=== PATIENT | female | born 1955 | race Caucasian/White ===

== ENCOUNTER 2018-06-18 18:00 | Inpatient (IN) | payer OTHER ==
--- NOTE | 2018-06-18 18:04 | PDOC ---
History of Present Illness - General Chief Complaint: Nausea/Vomiting Stated Complaint: NAUSEA WEAKNESS Time Seen by Provider: 06/18/18 18:03 History Source: Patient, Family Exam Limitations: Language Barrier (Mostly Croatian speaking; family provided translation) - History of Present Illness Initial Comments: 63 y/o female presenting to [facility] ER via ambulance from home complaining of nausea, vomiting, cough, fever for the past four days. Became dizzy and lightheaded today prompting the 911 call. Has not been tolerating PO. Endorses SOB at rest. Denies syncope, headache, sore throat, abdominal pain, diarrhea, or symptoms. Child in household has been diagnosed with pneumonia by PCP. PCP: Bhavna Collins Medical Hx: - Diabetes - HTN Past History - Past Medical History Allergies/Adverse Reactions: Allergies Allergy/AdvReac Type Severity Reaction Status Date / Time No Known Allergies Allergy Verified 06/18/18 18:11 Home Medications: Ambulatory Orders Aspirin [ASA -] 81 mg PO DAILY 06/18/18 Lisinopril [Zestril] 20 mg PO DAILY 06/18/18 Metformin HCl [Metformin HCl ER] 1,000 mg PO BID 06/18/18 Review of Systems - Review of Systems Able to Perform ROS?: Yes Comments:: In addition to that documented in the HPI above, the additional ROS was obtained : Constitutional: Endorses fevers or chills Eyes: Denies vision changes ENMT: Denies sore throat CV: Denies chest pain Resp: Endorses SOB GI: Endorses vomiting. Denies diarrhea ED Treatment Course - LABORATORY CBC & Chemistry Diagram: 06/18/18 19:00 06/18/18 19:00 Medical Decision Making - Medical Decision Making *Reviewed vital signs, nursing notes, and prior visit documentation (if available). 64 y/o female complaining of cough, fever, nausea, and vomiting for the past four days. Close contact diagnosed with pneumonia. Febrile. Vitals remarkable for tachycardia and tachypnea without hypotension. Does not use oxygen therapy, now requiring 2LPM to maintain SPO2 >94%. Suspect pneumonia versus influenza. Low suspicion for ACS, CHF, pneumonitis, acute bronchitis. As pt currently meeting 2/4 SIRS (fever, tachycardia) and requiring O2, will obtain adult sepsis order set. Ordered acetaminophen and IVFB. CBC revealed leukocytosis. VBG revealed mild alkalosis, though this is a questionable sample as pO2 is extremely high for a venous sample. Will consider repeating as clinical status indicates. CXR shows possible RUQ lobar pneumonia. Poor diagnostic quality based on pt positioning. Will start antibiotics for community acquired pneumonia. Pt continuing to require supplemental oxygen. 20:57 Telephone consult with resident Dr. Ochoa. Agrees to admit pt to med/surg on inpatient status for Dr. Veliz. *DC/Admit/Observation/Transfer Diagnosis at time of Disposition: Tachycardia determined by examination of pulse, Fever determined by examination , Low oxygen saturation Community acquired pneumonia Qualifiers: Laterality: right Lung location: upper lobe of lung Qualified Code(s): J18.1 - Lobar pneumonia, unspecified organism - Discharge Dispostion Condition at time of disposition: Stable Decision to Admit order: Yes - Referrals Referrals: Bhavna Collins [Primary Care Provider] - - Patient Instructions - Post Discharge Activity
[2018-06-18] MEDS ORDERED: ACETAMINOPHEN 1000 MG/100 ML VIAL (NON FORMULARY) IVPB ONE (18:22)
[2018-06-18] MEDS ORDERED: SODIUM CHLORIDE 0.9% 500 ML INFUS.BAG IV ONE (18:25)
[2018-06-18] MEDS ORDERED: ACETAMINOPHEN INJECTION 100 ML IVPB ONE (18:41)
[2018-06-18 19:21] LABS: BASO % 0.3 % (0-2.0); HEMATOCRIT 38.6 % (32.4-45.2); HEMOGLOBIN 13.1 GM/dL (10.7-15.3); LYMPH % 9.6 % (8-40); MCH 26.9 pg (25.7-33.7); MCHC 33.9 g/dl (32.0-36.0); MEAN CELL VOLUME 79.2 fl (80-96); MEAN PLT VOLUME 9.4 fl (7.5-11.1); MONO % 6.1 % (3.8-10.2); PLATELET COUNT 167 K/MM3 (134-434); RBC 4.87 M/mm3 (3.60-5.2); RDW 14.3 % (11.6-15.6); VENOUS PC02 36.7 mmHg (38-52); VENOUS PH 7.44 (7.32-7.42); VENOUS PO2 80.4 mmHg (28-48); WHITE BLOOD COUNT 17.7 K/mm3 (4.0-10.0)
[2018-06-18] MEDS ORDERED: ONDANSETRON 4 MG/2 ML VIAL IVPUSH ONE (19:36)
[2018-06-18] MEDS ORDERED: ONDANSETRON 4 MG/2 ML VIAL ONE (19:39)
[2018-06-18 19:47] LABS: ALBUMIN 3.2 g/dl (3.4-5.0); ALK PHOS 112 U/L (45-117); ANION GAP 12 MMOL/L (8-16); BILIRUBIN,TOTAL 2.5 mg/dL (0.2-1); BLOOD UREA NITROGEN 17 mg/dL (7-18); CALCIUM 8.1 mg/dL (8.5-10.1); CHLORIDE 98 mmol/L (98-107); CO2 23 mmol/L (21-32); GLUCOSE,RANDOM 287 mg/dL (74-106); POTASSIUM 3.7 mmol/L (3.5-5.1); SGOT/AST 44 U/L (15-37); SGPT/ALT 63 U/L (13-61); SODIUM 134 mmol/L (136-145); TOT PROT 6.9 g/dl (6.4-8.2)
[2018-06-18] MEDS ORDERED: AZITHROMYCIN IVPB 500 MG in DEXTROSE 5%-WATER - 250 ML IVPB ONE (20:20)
[2018-06-18] MEDS ORDERED: CEFTRIAXONE 1 MG in DEXTROSE 5%-WATER - 50 ML IVPB ONE (20:20)
--- NOTE | 2018-06-18 20:51 | PDOC ---
Attending Attestation - Resident Resident Name: Tho Wilburn - ED Attending Attestation I have performed the following: I have examined & evaluated the patient, The case was reviewed & discussed with the resident, I agree w/resident's findings & plan, Exceptions are as noted - HPI HPI: 06/18/18 20:48 63 yo f with h/o HTN DM here with four days of cough, n/v threw up several times today. states decreased po intake last few days. did have sick contact of grandson who had pneumonia recently. no travel. no rash. no abd pain. no urinary symptoms. cough productive or yellow phelgm. no mod factor.s no cp no sob. no h/o lung disea.s no h/o smoking. - Physicial Exam PE: 06/18/18 20:49 awake alert lungs oropharynx dry mucous membranes. decreased bs at bases. reg tachycardia. no mrg abd soft obese nt. nondistended. ext wwp no edema. no calf tenderness. skin warm and dry no rash. alert oriented x 3. speech clear. - Medical Decision Making 06/18/18 20:50 differential : sepsis, flu, uti pelo influenza, pna, plan cxr labs ekg. sepsis workup. tylenol antiemetics. cxr with questionable infiltrate right . given abx , vs. improved. Heart Score/ECG Review #1 General ECG Interpretation: Sinus Rhythm, Normal Intervals, No acute ischemic changes Compared to previous ECG there are: Other 06/18/18 20:51 sinus tachycardia 108
[2018-06-18] MEDS ORDERED: CEFTRIAXONE 1 GM/50 ML BAG ONE (21:18)
[2018-06-18] MEDS ORDERED: AZITHROMYCIN IVPB 500 MG/250 ML BAG IVPB ONE (21:18)
[2018-06-18] MEDS ORDERED: ACETAMINOPHEN 325 MG TABLET (FP) PO PRN (21:45)
[2018-06-18] MEDS ORDERED: LACTATED RINGERS SOLUTION 1,000 ML IV STA (21:45)
--- NOTE | 2018-06-18 22:03 | HP ---
CHIEF COMPLAINT: cough, fever, dizziness HISTORY OF PRESENT ILLNESS: 63 year old female with a history of DM and hypertension presented to the ED complaining of 2 day hx of fever, cough, dizziness. Reports that it started as a cough productive of large amount of yellow sputum that progressed to a high fever which did not break with antipyretics. Patient states that she has been abnormally dizzy over the past 2 days, moreso when she is sitting up than when she is laying down. Endorsed mild nausea without vomiting. Reports that she was taking care of her son, who was diagnosed with pneumonia just 1 week ago. Denies any chest pain, shortness of breath, vomiting, diarrhea. States that after she received fluids in the ED, her dizziness had improved and she felt much better. ER course was notable for: (1) Temp 103, HR 96 (2) CXR without any abnormality (3) EKG NSR, Qtc reported as 519 Recent Travel: denies PAST MEDICAL HISTORY: DM, HTN PAST SURGICAL HISTORY: kidney stone surgery, tonsillectomy, tubal ligation Social History: Smoking: never Alcohol: social Drugs: never Family History: mother with cerebral aneurysm Allergies No Known Allergies Allergy (Verified 06/18/18 18:11) HOME MEDICATIONS: Home Medications Medication Instructions Recorded Aspirin [ASA -] 81 mg PO DAILY 06/18/18 Lisinopril [Zestril] 20 mg PO DAILY 06/18/18 Metformin HCl [Metformin HCl ER] 1,000 mg PO BID 06/18/18 REVIEW OF SYSTEMS CONSTITUTIONAL: fever Absent: fever, chills, diaphoresis, generalized weakness, malaise, loss of appetite, weight change HEENT: Absent: rhinorrhea, nasal congestion, throat pain, throat swelling, difficulty swallowing, mouth swelling, ear pain, eye pain, visual changes CARDIOVASCULAR: Absent: chest pain, syncope, palpitations, irregular heart rate, lightheadedness , peripheral edema RESPIRATORY: cough Absent: shortness of breath, dyspnea with exertion, orthopnea, wheezing, stridor, hemoptysis GASTROINTESTINAL: Absent: abdominal pain, abdominal distension, nausea, vomiting, diarrhea, constipation, melena, hematochezia GENITOURINARY: Absent: dysuria, frequency, urgency, hesitancy, hematuria, flank pain, genital pain MUSCULOSKELETAL: Absent: myalgia, arthralgia, joint swelling, back pain, neck pain SKIN: Absent: rash, itching, pallor HEMATOLOGIC/IMMUNOLOGIC: Absent: easy bleeding, easy bruising, lymphadenopathy, frequent infections ENDOCRINE: Absent: unexplained weight gain, unexplained weight loss, heat intolerance, cold intolerance NEUROLOGIC: Absent: headache, focal weakness or paresthesias, dizziness, unsteady gait, seizure, mental status changes, bladder or bowel incontinence PSYCHIATRIC: Absent: anxiety, depression, suicidal or homicidal ideation, hallucinations. PHYSICAL EXAMINATION Vital Signs - 24 hr 06/18/18 06/18/18 06/18/18 18:09 18:34 19:52 Temperature 103.0 F H Pulse Rate 112 H Pulse Rate [ 96 H Left] Respiratory 18 18 Rate Blood Pressure 176/90 H Blood Pressure 133/84 [Right Arm] O2 Sat by Pulse 93 L 97 98 Oximetry (%) GENERAL: A&Ox3, no acute distress EYES: PERRLA, EOMI ENT: Dry mucus membranes NECK: No JVD LUNGS: CTA, mild rales heard in upper lung field on the left HEART: RRR, no murmurs ABDOMEN: Obese, Soft, nontender, BS present MUSCULOSKELETAL: No CVA Tenderness EXTREMITIES: 2+ pulses, no edema. NEUROLOGICAL: Cranial nerves II-XII intact. No focal Deficits. Laboratory Results - last 24 hr 06/18/18 06/18/18 06/18/18 19:00 19:00 19:00 WBC 17.7 H RBC 4.87 Hgb 13.1 Hct 38.6 MCV 79.2 L MCH 26.9 MCHC 33.9 RDW 14.3 Plt Count 167 MPV 9.4 Absolute Neuts (auto) 14.9 H Neutrophils % 84.0 H Lymphocytes % 9.6 Monocytes % 6.1 Eosinophils % 0.0 Basophils % 0.3 Nucleated RBC % 0 VBG pH 7.44 H POC VBG pCO2 36.7 L POC VBG pO2 80.4 H Mixed VBG HCO3 24.6 Sodium 134 L Potassium 3.7 Chloride 98 Carbon Dioxide 23 Anion Gap 12 BUN 17 Creatinine 1.0 Creat Clearance w eGFR 56.18 Random Glucose 287 H Lactic Acid Calcium 8.1 L Total Bilirubin 2.5 H AST 44 H ALT 63 H Alkaline Phosphatase 112 Troponin I Total Protein 6.9 Albumin 3.2 L Influenza A (Rapid) Influenza B (Rapid) 06/18/18 06/18/18 06/18/18 19:00 19:00 19:10 WBC RBC Hgb Hct MCV MCH MCHC RDW Plt Count MPV Absolute Neuts (auto) Neutrophils % Lymphocytes % Monocytes % Eosinophils % Basophils % Nucleated RBC % VBG pH POC VBG pCO2 POC VBG pO2 Mixed VBG HCO3 Sodium Potassium Chloride Carbon Dioxide Anion Gap BUN Creatinine Creat Clearance w eGFR Random Glucose Lactic Acid 1.3 Calcium Total Bilirubin AST ALT Alkaline Phosphatase Troponin I < 0.02 Total Protein Albumin Influenza A (Rapid) Negative Influenza B (Rapid) Negative ASSESSMENT/PLAN: 63 year old female with a history of DM and hypertension presented to the ED complaining of 2 day hx of fever, cough, dizziness admitted for the treatment of sepsis 2/2 PNA #Sepsis 2/2 PNA: CXR clear, SIRs criteria and clinically will treat for PNA -urine legionella ordered -CT chest ordered -1 L lactated ringers -ceftriaxone 2gm IV -azithromycin 500 IV -f/u blood/urine cultures/UA -sputum culture #DM: glucose elevated -check A1C -BGMs -ISS #Transaminitis: mild -trend LFTs in AM #Hypertension: -resume home BP meds #FEN -1L lactated ringers ordered -recheck lytes in AM -diabetic diet #Prophylaxis -lovenox #Disposition -admit med surg Visit type - Emergency Visit Emergency Visit: No - New Patient This patient is new to me today: No - Critical Care Critical Care patient: No
[2018-06-18] MEDS ORDERED: INSULIN (NOVOLOG) ASPART 100 UNITS/ML 10ML VIAL ONE (22:37)
[2018-06-18] MEDS: INSULIN SLIDING SCALE (NOVOLOG) 1 VIAL SQ SCH (22:39)
--- NOTE | 2018-06-18 23:29 | PN ---
Teaching Attending Note Name of Resident: Ramon Ochoa ATTENDING PHYSICIAN STATEMENT I saw and evaluated the patient. I reviewed the resident's note and discussed the case with the resident. I agree with the resident's findings and plan as documented. SUBJECTIVE: Seen and examined; please refer to resident note for further historical details. This is a 63 y/o female with a PMH significant for DM, HTN. She is only documented as taking lisinopril, metformin, and asa at home. She has had several days of malaise and productive cough with thick yellowish sputum that did evolve into hemoptysis while on the floor tonight. Her family member that she lives with has been sick with pneumonia and she is concerned she has it. Nothing makes her sx better or worse, no recent doctor visits or abx. Has had poor PO intake as nausea and some vomitting associated with these sx. She was seen by the resident earlier in the night and was moved to the floor shortly after where I saw here. On the floor she was found to develop SOB and substernal chest tightness with hemoptysis; never had these issues before. No prior CV workup on file here. Given tachycardia and hemoptysis cannot exclude PE as Well's Score 2.5; given relatively unremarkable CXR will also help shed light on any occult infiltrates. 10 sys ROS done and negative aside from HPI PMH and PSH reviewed FH asked and noncontributory Social hx denies EtOH or tobacco abuse OBJECTIVE: VS now stable satting 96% on RA, labs and imaging reviewed NAD, resting in bed RRR s1/2 no mgr NC AT EOMI PERRLA NT ND +BS Trachea midline no JVD Lungs appear to be clear with sym exp No peripheral edema with +2 pedal pulses CXR done on admission is unremarkable; recheck CXR this AM US preliminary report shows that she has diffuse fatty infiltration of her liver with a CBD 0.8cm Final report is pending Labs show a WBC of 17 with neutrophilia; Na 134; Tbili is 2.5 with AST/ALT 44/63 , glucose 280s, negative influenza, cultures pending. Rest of CBC, BMP unremarkable. ESR/CRP pending, Lipase pending. UA with ketonuria +1 and proteinuria +2 ASSESSMENT AND PLAN: Mrs. Hernandez is a 63 y/o female presenting with fever, tachycardia, hypoxia, and leukocytosis with a cough; she was found to have an elevated bilirubuin and mildly elevated AST/ALT. After hydration and abx her HR lowered and O2 saturation improved, but she again developed SOB with some tachy and now hemoptysis on the floor. Checking CTA as now Well's Score 2.5 and cannot r/o using PERC rule. 1) Likely Sepsis with ?pulm source -Given the benign physical exam in abdomen, neuro not suspecting those sources ( especially with the negative US). her history suggests pulmonary source but her CXR is non-revealing. Given hemoptysis, etc. obtaining CTA to r/o PE or other issues so will be able to see an occult infiltrate. Covering empirically with ceftriaxone and azithro. Culturing sputum and blood. Checking pneumococcal and legionella Ag. 2) Hemoptysis -Checking CTA, quanterferon. Monitor. No stridor, etc. 3) Chest Tightness -Risk factors but atypical presentation ? relation to coughing. Ruling out PE. Checking STAT EKG and troponin. Checking echo. If concern exists consider inpt. vs. outpt. stress test vs. CV assessment. DDx includes PE vs. ACS vs. musculoskeletal/other 4) Elevated LFTs -Fatty infiltration seen diffusely on the US; she is s/p cholecystectomy. Checking hepatitis pannel. May be component of BURRIS. No abdominal signs; will trend and if worsening consider further workup vs. GI evaluation. 5) Fatty Liver -As per above 6) HTN -Hold PO meds; resume when ascertained stable VS and SOB resolving appropriately. 7) NIDDM -Hold PO meds and place on SSI 8) Obesity -House Player when appropriate prior to DC 9) Dizziness -Never syncopized, was when she was going to stand from sitting. Moving her to telemetry and will watch for arrhythmia. +Ketones, orthostatic sx (VS not done prior to hydration so would be innacurate), and h/o poor PO intake indicate likely volume related process. Reassess today and if not improved consider further workup. 10) Very Mild Hyponatremia -With h/o poor PO, etc. likely due to poor solute intake. Giving isotonic fluids then rechecking BMP. DVT px: Lovenox Full Code
[2018-06-19 01:44] LABS: URINE APPEARANCE CLEAR; URINE BILIRUBIN NEGATIVE (<2.0 mg/dL); URINE COLOR DKYELLOW; URINE GLUCOSE (UA) 3+ (NEGATIVE); URINE KETONE 1+ (NEGATIVE); URINE LEUK ESTERASE NEGATIVE (NEGATIVE); URINE NITRITE NEGATIVE (NEGATIVE); URINE PROTEIN 2+ (NEGATIVE)
[2018-06-19 01:50] LABS: EPI CELLS RARE /HPF (FEW); GRANULAR CASTS 10 /lpf; URINE BACTERIA RARE /hpf (NONE SEEN); URINE HYALINE CAST 41 /lpf; URINE MUCUS RARE
[2018-06-19 05:55] VITALS: BMI 33.4
[2018-06-19] MEDS: INSULIN SLIDING SCALE (NOVOLOG) 1 VIAL SQ SCH ×4 (06:35→21:39)
[2018-06-19 08:45] LABS: BILIRUBIN,DIRECT 0.7 mg/dL (0.0-0.2); LIPASE 117 U/L (73-393)
[2018-06-19 08:55] LABS: CHOLESTEROL 156 mg/dL (50-200); TRIGLYCERIDES 149 mg/dL (0-150)
[2018-06-19 09:28] LABS: HEMATOCRIT 37.3 % (32.4-45.2); HEMOGLOBIN 12.1 GM/dL (10.7-15.3); MCHC 32.4 g/dl (32.0-36.0); MEAN CELL VOLUME 80.1 fl (80-96); MEAN PLT VOLUME 9.8 fl (7.5-11.1); PLATELET COUNT 155 K/MM3 (134-434); RBC 4.66 M/mm3 (3.60-5.2); RDW 14.4 % (11.6-15.6); WHITE BLOOD COUNT 16.7 K/mm3 (4.0-10.0)
[2018-06-19 09:49] LABS: ALBUMIN 2.9 g/dl (3.4-5.0); ALK PHOS 110 U/L (45-117); ANION GAP 12 MMOL/L (8-16); BILIRUBIN,TOTAL 1.9 mg/dL (0.2-1); BLOOD UREA NITROGEN 14 mg/dL (7-18); CALCIUM 7.9 mg/dL (8.5-10.1); CHLORIDE 99 mmol/L (98-107); CO2 24 mmol/L (21-32); CREATININE 0.9 mg/dL (0.55-1.3); GLUCOSE,RANDOM 229 mg/dL (74-106); MAGNESIUM 2.2 mg/dL (1.8-2.4); PHOSPHOROUS 1.5 mg/dL (2.5-4.9); POTASSIUM 3.8 mmol/L (3.5-5.1); SGOT/AST 30 U/L (15-37); SGPT/ALT 51 U/L (13-61); SODIUM 134 mmol/L (136-145); TOT PROT 6.6 g/dl (6.4-8.2)
[2018-06-19] MEDS ORDERED: AZITHROMYCIN IVPB 500 MG/250 ML BAG IVPB SCH (10:00)
[2018-06-19] MEDS ORDERED: CEFTRIAXONE 1 GM in DEXTROSE 5%-WATER - 50 ML IVPB SCH (10:00)
[2018-06-19] MEDS ORDERED: CEFTRIAXONE 2 GM in DEXTROSE 5%-WATER 100 ML IVPB SCH (10:00)
[2018-06-19] MEDS ORDERED: LISINOPRIL 20 MG TABLET (FP) PO SCH (10:00)
[2018-06-19 10:13] LABS: HDL CHOLESTEROL 44 mg/dL (40-60)
[2018-06-19] MEDS ORDERED: DEXTROSE 5%-WATER - 50 ML IVPB ONE (10:18)
[2018-06-19] MEDS ORDERED: cefTRIAXone SODIUM 1 GM VIAL ONE ×2 (10:18→10:20)
[2018-06-19] MEDS ORDERED: DEXTROSE 5%-WATER - 100 ML IVPB ONE (10:20)
[2018-06-19] MEDS: ENOXAPARIN NA (PORCINE) 40 MG/0.4 ML DISP.SYRIN SQ SCH (10:23)
[2018-06-19] MEDS: ASPIRIN 81 MG CHEWABLE TABLETS PO SCH (10:23)
[2018-06-19] MEDS ORDERED: CEFTRIAXONE 1 GM in DEXTROSE 5%-WATER - 50 ML IVPB ONE (12:40)
--- NOTE | 2018-06-19 12:45 | PN ---
Progress Note (short form) - Note Progress Note: PULMONARY IMP CONSULTATION DICTATED 06/19/18 IMP RUL PNEUMONIA WITH BACTEREMIA DYSPNEA SECONDARY TO ABOVE HTN DM LIKELY OSAS ELEVATED LFTS PLAN ABX PER ID INHALED BRONCHODILATORS NEEDED IVF MONITOR BLOOD SUGARS F/U CHEST X-RAYS SLEEP SCREEN DR BEAL Problem List - Problems (1) Community acquired pneumonia Code(s): J18.9 - PNEUMONIA, UNSPECIFIED ORGANISM Qualifiers: Laterality: right Lung location: upper lobe of lung Qualified Code(s): J18.1 - Lobar pneumonia, unspecified organism (2) Fever determined by examination Code(s): R50.9 - FEVER, UNSPECIFIED (3) Low oxygen saturation Code(s): R79.81 - ABNORMAL BLOOD-GAS LEVEL (4) Tachycardia determined by examination of pulse Code(s): R00.0 - TACHYCARDIA, UNSPECIFIED (5) Diabetes Code(s): E11.9 - TYPE 2 DIABETES MELLITUS WITHOUT COMPLICATIONS (6) HTN (hypertension) Code(s): I10 - ESSENTIAL (PRIMARY) HYPERTENSION (7) Bacteremia Code(s): R78.81 - BACTEREMIA
--- NOTE | 2018-06-19 12:50 | CON.ID ---
Consult Consult Specialty:: infectious disease Referred by:: dr jordan Reason for Consultation:: bacteremia - History of Present Illness Chief Complaint: cough, fever History of Present Illness: 63 yo female admitted from home with cough, fever and vomiting Threw up several times took care of nephew with pneumonia (age 9) no travel no influenza vaccine this year not sure who her PMD is +blood tinged sputum - History Source History Provided By: Patient, Medical Record Limitations to Obtaining History: No Limitations - Past Medical History Cardio/Vascular: Yes: HTN, Hyperlipdemia Pulmonary: No: Asthma ...: No - Past Surgical History Past Surgical History: Yes: None - Alcohol/Substance Use Hx Alcohol Use: No - Smoking History Smoking history: Never smoked Have you smoked in the past 12 months: No - Social History Usual Living Arrangement: With Child ADL: Independent Place of : Other ([facility]) History of Recent Travel: No Home Medications - Allergies Allergies/Adverse Reactions: Allergies Allergy/AdvReac Type Severity Reaction Status Date / Time No Known Allergies Allergy Verified 06/18/18 18:11 - Home Medications Home Medications: Ambulatory Orders Aspirin [ASA -] 81 mg PO DAILY 06/18/18 Lisinopril [Zestril] 20 mg PO DAILY 06/18/18 Metformin HCl [Metformin HCl ER] 1,000 mg PO BID 06/18/18 Family Disease History - Family Disease History Family History: Denies Review of Systems - Review of Systems Constitutional: reports: Chills, Fever Eyes: reports: No Symptoms HENT: reports: No Symptoms, Other (dental cleaning 6 months ago). denies: Difficult Swallowing Neck: reports: No Symptoms Cardiovascular: reports: No Symptoms. denies: Chest Pain Respiratory: reports: Cough Gastrointestinal: reports: Vomiting Physical Exam Vital Signs: Vital Signs Temperature 99.1 F 06/19/18 06:16 Pulse Rate 99 H 06/19/18 06:16 Respiratory Rate 20 06/19/18 06:16 Blood Pressure 151/84 06/19/18 06:16 O2 Sat by Pulse Oximetry (%) 95 06/19/18 05:55 Constitutional: Yes: Well Nourished, No Distress, Calm Eyes: Yes: Conjunctiva Clear, EOM Intact HENT: Yes: Atraumatic, Normocephalic, Other (good dentition) Neck: Yes: Supple, Trachea Midline Cardiovascular: Yes: Regular Rate and Rhythm Respiratory: Yes: Regular, Diminished Gastrointestinal: Yes: Normal Bowel Sounds, Soft Renal/: No: CVA Tenderness - Left, CVA Tenderness - Right Extremities: Yes: WNL Psychiatric: Yes: Alert, Oriented Labs: CBC, BMP 06/19/18 07:30 06/19/18 07:30 Microbiology 06/19/18 01:30 Urine - Urine Clean Catch Legionella Antigen - Final-NEGATIVE 06/19/18 01:30 Urine - Urine Clean Catch Streptococcus pneumoniae Antigen ( M - Final-NEGATIVE 06/18/18 19:00 Blood - Peripheral Venous Blood Culture - Preliminary Pending Organism 06/18/18 19:00 Blood - Peripheral Venous Blood Culture - Preliminary Pending Organism Laboratory Tests 06/19/18 07:30 Hemoglobin A1c % 9.9 H Imaging - Results Chest X-ray: Report Reviewed, Image Reviewed Cat Scan: Report Reviewed, Image Reviewed Problem List - Problems (1) Bacteremia Code(s): R78.81 - BACTEREMIA (2) Community acquired pneumonia Code(s): J18.9 - PNEUMONIA, UNSPECIFIED ORGANISM Qualifiers: Laterality: right Lung location: upper lobe of lung Qualified Code(s): J18.1 - Lobar pneumonia, unspecified organism (3) Diabetes Code(s): E11.9 - TYPE 2 DIABETES MELLITUS WITHOUT COMPLICATIONS Assessment/Plan suspect bacteremic pneumococcal pneumonia but interestingly pneumococcal antigen is negative continue ceftriaxone add vancomycin f/u cultures clinically feeling better echo repeat blood cultures in am poorly controlled DM needs better education and f/u declines HIV testing at this time
--- NOTE | 2018-06-19 13:22 | CONS ---
DATE OF CONSULTATION: 06/19/2018 PULMONARY CONSULTATION REFERRING PHYSICIAN: Vikas Cabello MD HISTORY OF PRESENT ILLNESS: The patient is a 63-year-old female with a past medical history of [id number] diabetes mellitus and hypertension. She is a non-smoker admitted at [facility] with a 3-day history of fever, cough, chest congestion and dizziness. The patient states that approximately three days prior to her admission, she started developing shaking chills associated with shortness of breath. She also had a cough productive of yellow sputum, occasionally tinged with blood. She also began to have high fevers not improving with anti-pyretics. She also complained of nausea and vomiting but had no abdominal pain or diarrhea. Her symptoms continued to worsen, at which time she presented to the emergency room. In the emergency room, she underwent a chest x-ray that revealed right upper lobe consolidation. She subsequently underwent a CT scan of the chest which showed no pulmonary embolism but again revealed right upper lobe consolidation. The patient was admitted to the floor and started on broad-spectrum antibiotics. The patient denies any past history of pneumonia, COPD or asthma. She has no history of recent travel. She was born in the [place] and moved to the [facility] many years ago. She denies any history of tuberculosis. She has had no unexplained fevers, weight loss or night sweats. She has no past history of DVT or pulmonary embolism. PAST MEDICAL HISTORY: Again, this includes hypertension and diabetes. SOCIAL HISTORY: Nonsmoker. No occupational exposures. Born in the [facility] and moved to the [facility] many years ago. REVIEW OF SYSTEMS: Positive for shortness of breath, cough, trace hemoptysis, sputum, fever, chills, nausea and vomiting. No abdominal pain or change in bowels. CURRENT MEDICATIONS: Zithromax, ceftriaxone, Lovenox, Januvia, aspirin and Tylenol. PHYSICAL EXAMINATION: General: The patient is a well-developed, well-nourished female, awake and alert, in no acute distress. Vital Signs: She is currently afebrile. Blood pressure is 151/84, respiratory rate 20, O2 saturation is 95% on 2 liters of oxygen. T-max on admission was 103. HEENT: Head is normocephalic, atraumatic. Neck: Supple. Heart: Regular. S1, S2. Chest: There are crackles in the right upper lobe. Abdomen: Soft. Bowel sounds are positive. Extremities: No cyanosis or edema. LABORATORY: WBC is 16.7, hemoglobin 12.1, hematocrit 37.3, platelet count of 155,000. On venous blood gas, pH is 7.44, PCO2 is 36 and PO2 is 80. BUN is 19, creatinine 0.9. Hemoglobin A1c is 9.9. Phosphorus level is 1.5. AST 30, down from 44, bilirubin 1.9, CRP is 42. Urinalysis is positive for negative nitrites, . Microbiology: Blood culture is positive pending organisms. Legionella antigen negative. Strep pneumonia antigen negative. A chest CT shows right upper lobe consolidation with air bronchograms, borderline large right hilar lymph nodes, likely reactive. IMPRESSION: 1. Right upper lobe pneumonia with bacteremia. 2. Dyspnea secondary to pneumonia. 3. Diabetes. 4. Hypertension. PLAN: 1. IV antibiotics. 2. Inhaled bronchodilators p.r.n. 3. Final ID of cultures pending. 3. Follow up chest x-rays to document resolution of infiltrates. 4. Nasal oxygen. TAMARA BEAL M.D. [id number]
[2018-06-19] MEDS: VANCOMYCIN 1,250 MG in DEXTROSE 5%-WATER - 250 ML IVPB SCH (15:01)
--- NOTE | 2018-06-19 16:44 | PN ---
Progress Note, Physician Chief Complaint: EVENTS AND NOTES REVIEWED PATIENT COMFORTABLE IN BED +BLOOD CULTURES AWAITING SENS - Current Medication List Current Medications: Active Medications Acetaminophen (Tylenol -) 650 mg PO Q4H PRN PRN Reason: FEVER Aspirin (Asa -) 81 mg PO DAILY [facility] Last Admin: 06/19/18 10:23 Dose: 81 mg Enoxaparin Sodium (Lovenox -) 40 mg SQ DAILY [facility] Last Admin: 06/19/18 10:23 Dose: 40 mg Ceftriaxone Sodium 1 gm/ (Dextrose) 50 mls @ 100 mls/hr IVPB DAILY [facility]; Protocol Last Admin: 06/19/18 10:23 Dose: 100 mls/hr Ceftriaxone Sodium 2 gm/ (Dextrose) 100 mls @ 200 mls/hr IVPB DAILY [facility]; Protocol Vancomycin HCl 1,250 mg/ (Dextrose) 250 mls @ 166.667 mls/hr IVPB Q12H [facility]; Protocol Last Admin: 06/19/18 15:01 Dose: 166.667 mls/hr Insulin Aspart (Novolog Vial Sliding Scale -) 1 vial SQ ACHS [facility]; Protocol Last Admin: 06/19/18 11:52 Dose: 8 units Sitagliptin Phosphate (Januvia -) 50 mg PO DAILY@0700 [facility] - Objective Vital Signs: Vital Signs Temperature 97.5 F L 06/19/18 10:00 Pulse Rate 100 H 06/19/18 10:00 Respiratory Rate 20 06/19/18 10:00 Blood Pressure 146/75 06/19/18 10:00 O2 Sat by Pulse Oximetry (%) 97 06/19/18 09:00 Constitutional: Yes: Mild Distress Eyes: Yes: WNL HENT: Yes: WNL Neck: Yes: WNL Cardiovascular: Yes: WNL Respiratory: Yes: Cough, On Nasal O2, Wheezes Gastrointestinal: Yes: WNL Musculoskeletal: Yes: WNL Extremities: Yes: WNL Edema: No Peripheral Pulses WNL: Yes Integumentary: Yes: WNL Wound/Incision: Yes: Clean/Dry Neurological: Yes: WNL ...Motor Strength: WNL Psychiatric: Yes: WNL Labs: CBC, BMP 06/19/18 07:30 06/19/18 07:30 Problem List - Problems (1) Bacteremia Code(s): R78.81 - BACTEREMIA (2) Community acquired pneumonia Code(s): J18.9 - PNEUMONIA, UNSPECIFIED ORGANISM Qualifiers: Laterality: right Lung location: upper lobe of lung Qualified Code(s): J18.1 - Lobar pneumonia, unspecified organism (3) Diabetes Code(s): E11.9 - TYPE 2 DIABETES MELLITUS WITHOUT COMPLICATIONS (4) HTN (hypertension) Code(s): I10 - ESSENTIAL (PRIMARY) HYPERTENSION (5) Low oxygen saturation Code(s): R79.81 - ABNORMAL BLOOD-GAS LEVEL (6) Tachycardia determined by examination of pulse Code(s): R00.0 - TACHYCARDIA, UNSPECIFIED Assessment/Plan ID/PULM CONSULT 02 SUPPORT DIABETES CONTROL SSI BGM ENDOCRINE CONSULT IV ABX
[2018-06-19] MEDS ORDERED: INSULIN (NOVOLOG) ASPART 100 UNITS/ML 10ML VIAL ONE (21:18)
[2018-06-20] MEDS ORDERED: PT OWN MED DRAWER 7, Y5N ONE ×3 (00:21→23:34)
[2018-06-20] MEDS: VANCOMYCIN 1,250 MG in DEXTROSE 5%-WATER - 250 ML IVPB SCH ×2 (01:07→13:30)
[2018-06-20] MEDS: INSULIN SLIDING SCALE (NOVOLOG) 1 VIAL SQ SCH ×4 (06:26→22:27)
[2018-06-20] MEDS ORDERED: sitaGLIPtin PHOSPHATE 50 MG TABLET PO SCH (07:00)
[2018-06-20 07:28] LABS: HEMATOCRIT 36.5 % (32.4-45.2); MCH 26.3 pg (25.7-33.7); MCHC 32.8 g/dl (32.0-36.0); MEAN PLT VOLUME 10.1 fl (7.5-11.1); PLATELET COUNT 161 K/MM3 (134-434); RBC 4.56 M/mm3 (3.60-5.2); RDW 14.4 % (11.6-15.6); WHITE BLOOD COUNT 10.4 K/mm3 (4.0-10.0)
[2018-06-20 08:02] LABS: ANION GAP 9 MMOL/L (8-16); BLOOD UREA NITROGEN 14 mg/dL (7-18); CALCIUM 8.4 mg/dL (8.5-10.1); CHLORIDE 101 mmol/L (98-107); CO2 27 mmol/L (21-32); CREATININE 0.6 mg/dL (0.55-1.3); GLUCOSE,RANDOM 207 mg/dL (74-106); POTASSIUM 3.8 mmol/L (3.5-5.1); SODIUM 136 mmol/L (136-145)
[2018-06-20 08:08] LABS: HEP.C VIRUS AB <0.1 s/co ratio (0.0-0.9)
[2018-06-20] MEDS ORDERED: DEXTROSE 5%-WATER 100 ML IVPB ONE (10:08)
[2018-06-20] MEDS: ASPIRIN 81 MG CHEWABLE TABLETS PO SCH (10:17)
[2018-06-20] MEDS: ENOXAPARIN NA (PORCINE) 40 MG/0.4 ML DISP.SYRIN SQ SCH (10:17)
[2018-06-20] MEDS: CEFTRIAXONE 2 GM in DEXTROSE 5%-WATER 100 ML IVPB SCH (10:17)
[2018-06-20] MEDS ORDERED: INSULIN (NOVOLOG) ASPART 100 UNITS/ML 10ML VIAL ONE (11:37)
--- NOTE | 2018-06-20 12:27 | PN ---
Progress Note, Physician Chief Complaint: AWAKE ALERT SON BEDSIDE FEELING BETTER - Current Medication List Current Medications: Active Medications Acetaminophen (Tylenol -) 650 mg PO Q4H PRN PRN Reason: FEVER Aspirin (Asa -) 81 mg PO DAILY [facility] Last Admin: 06/20/18 10:17 Dose: 81 mg Enoxaparin Sodium (Lovenox -) 40 mg SQ DAILY [facility] Last Admin: 06/20/18 10:17 Dose: 40 mg Ceftriaxone Sodium 2 gm/ (Dextrose) 100 mls @ 200 mls/hr IVPB DAILY [facility]; Protocol Last Admin: 06/20/18 10:17 Dose: 200 mls/hr Vancomycin HCl 1,250 mg/ (Dextrose) 250 mls @ 166.667 mls/hr IVPB Q12H [facility]; Protocol Last Admin: 06/20/18 01:07 Dose: 166.667 mls/hr Insulin Aspart (Novolog Vial Sliding Scale -) 1 vial SQ ACHS [facility]; Protocol Last Admin: 06/20/18 06:26 Dose: 4 units Sitagliptin Phosphate (Januvia -) 50 mg PO DAILY@0700 [facility] Last Admin: 06/20/18 06:26 Dose: 50 mg - Objective Vital Signs: Vital Signs Temperature 98.3 F 06/20/18 10:00 Pulse Rate 87 06/20/18 10:00 Respiratory Rate 18 06/20/18 10:00 Blood Pressure 116/88 06/20/18 10:00 O2 Sat by Pulse Oximetry (%) 98 06/20/18 09:00 Constitutional: Yes: Mild Distress Eyes: Yes: WNL HENT: Yes: WNL Neck: Yes: WNL Cardiovascular: Yes: WNL Respiratory: Yes: Cough, On Nasal O2 Gastrointestinal: Yes: WNL Genitourinary: Yes: WNL Musculoskeletal: Yes: Muscle Weakness Extremities: Yes: WNL Edema: No Peripheral Pulses WNL: Yes Integumentary: Yes: WNL Wound/Incision: Yes: Clean/Dry Neurological: Yes: WNL ...Motor Strength: WNL Psychiatric: Yes: WNL Labs: CBC, BMP 06/20/18 06:15 06/20/18 06:15 Problem List - Problems (1) Bacteremia Code(s): R78.81 - BACTEREMIA (2) Community acquired pneumonia Code(s): J18.9 - PNEUMONIA, UNSPECIFIED ORGANISM Qualifiers: Laterality: right Lung location: upper lobe of lung Qualified Code(s): J18.1 - Lobar pneumonia, unspecified organism (3) Diabetes Code(s): E11.9 - TYPE 2 DIABETES MELLITUS WITHOUT COMPLICATIONS (4) HTN (hypertension) Code(s): I10 - ESSENTIAL (PRIMARY) HYPERTENSION (5) Low oxygen saturation Code(s): R79.81 - ABNORMAL BLOOD-GAS LEVEL (6) Tachycardia determined by examination of pulse Code(s): R00.0 - TACHYCARDIA, UNSPECIFIED (7) Sepsis Code(s): A41.9 - SEPSIS, UNSPECIFIED ORGANISM Assessment/Plan IV ABX NEBS PULM/ID FOLLOW UP CHECK LABS 02 SUPPORT AWAIT MICROBIOLOGY
--- NOTE | 2018-06-20 12:31 | PN ---
Progress Note, Physician History of Present Illness: pulmonary alert,oob-chair,-sob,min cough - Current Medication List Current Medications: Active Medications Acetaminophen (Tylenol -) 650 mg PO Q4H PRN PRN Reason: FEVER Aspirin (Asa -) 81 mg PO DAILY [facility] Last Admin: 06/20/18 10:17 Dose: 81 mg Enoxaparin Sodium (Lovenox -) 40 mg SQ DAILY [facility] Last Admin: 06/20/18 10:17 Dose: 40 mg Ceftriaxone Sodium 2 gm/ (Dextrose) 100 mls @ 200 mls/hr IVPB DAILY [facility]; Protocol Last Admin: 06/20/18 10:17 Dose: 200 mls/hr Vancomycin HCl 1,250 mg/ (Dextrose) 250 mls @ 166.667 mls/hr IVPB Q12H [facility]; Protocol Last Admin: 06/20/18 01:07 Dose: 166.667 mls/hr Insulin Aspart (Novolog Vial Sliding Scale -) 1 vial SQ ACHS [facility]; Protocol Last Admin: 06/20/18 06:26 Dose: 4 units Sitagliptin Phosphate (Januvia -) 50 mg PO DAILY@0700 [facility] Last Admin: 06/20/18 06:26 Dose: 50 mg - Objective Vital Signs: Vital Signs Temperature 98.3 F 06/20/18 10:00 Pulse Rate 87 06/20/18 10:00 Respiratory Rate 18 06/20/18 10:00 Blood Pressure 116/88 06/20/18 10:00 O2 Sat by Pulse Oximetry (%) 98 06/20/18 09:00 Constitutional: Yes: Well Nourished, Calm Eyes: Yes: WNL HENT: Yes: WNL Neck: Yes: WNL Cardiovascular: Yes: Regular Rate and Rhythm, S1, S2 Respiratory: Yes: Rales (few crackles on r) Gastrointestinal: Yes: Normal Bowel Sounds, Soft Extremities: Yes: WNL Edema: No Labs: CBC, BMP 06/20/18 06:15 06/20/18 06:15 Problem List - Problems (1) Community acquired pneumonia Code(s): J18.9 - PNEUMONIA, UNSPECIFIED ORGANISM Qualifiers: Laterality: right Lung location: upper lobe of lung Qualified Code(s): J18.1 - Lobar pneumonia, unspecified organism (2) Fever determined by examination Code(s): R50.9 - FEVER, UNSPECIFIED (3) Low oxygen saturation Code(s): R79.81 - ABNORMAL BLOOD-GAS LEVEL (4) Tachycardia determined by examination of pulse Code(s): R00.0 - TACHYCARDIA, UNSPECIFIED (5) Diabetes Code(s): E11.9 - TYPE 2 DIABETES MELLITUS WITHOUT COMPLICATIONS (6) HTN (hypertension) Code(s): I10 - ESSENTIAL (PRIMARY) HYPERTENSION (7) Bacteremia Code(s): R78.81 - BACTEREMIA Assessment/Plan IMP RUL PNEUMONIA WITH BACTEREMIA DYSPNEA SECONDARY TO ABOVE HTN DM LIKELY OSAS ELEVATED LFTS PLAN ABX PER ID INHALED BRONCHODILATORS NEEDED IVF MONITOR BLOOD SUGARS F/U CHEST X-RAYS SLEEP SCREEN DR BEAL Problem List - Problems (1) Community acquired pneumonia Code(s): J18.9 - PNEUMONIA, UNSPECIFIED ORGANISM Qualifiers: Laterality: right Lung location: upper lobe of lung Qualified Code(s): J18.1 - Lobar pneumonia, unspecified organism (2) Fever determined by examination Code(s): R50.9 - FEVER, UNSPECIFIED (3) Low oxygen saturation Code(s): R79.81 - ABNORMAL BLOOD-GAS LEVEL (4) Tachycardia determined by examination of pulse Code(s): R00.0 - TACHYCARDIA, UNSPECIFIED (5) Diabetes Code(s): E11.9 - TYPE 2 DIABETES MELLITUS WITHOUT COMPLICATIONS (6) HTN (hypertension) Code(s): I10 - ESSENTIAL (PRIMARY) HYPERTENSION (7) Bacteremia Code(s): R78.81 - BACTEREMIA
--- NOTE | 2018-06-20 13:01 | PN ---
Progress Note (short form) - Note Progress Note: feels much better today oob to chair Vital Signs Period Temp Pulse Resp BP Sys/Funes Pulse Ox Last 24 Hr 98.3 F-99.5 F 83-87 18-20 116-138/77-88 98-99 cor-rrr lungs decreased bs bilaterallyl abd soft,nt ext no edema CBC, BMP 06/20/18 06:15 06/20/18 06:15 Microbiology 06/18/18 22:30 Sputum - Expectorated Gram Stain - Final 06/18/18 22:30 Sputum - Expectorated Sputum Culture - Preliminary NORMAL RESPIRATORY MAGI 06/19/18 01:30 Urine - Urine Clean Catch Urine Culture - Final 06/18/18 19:00 Blood - Peripheral Venous Blood Culture - Preliminary Alpha Hemolytic Streptococcus 06/18/18 19:00 Blood - Peripheral Venous Blood Culture - Preliminary Alpha Hemolytic Streptococcus 06/19/18 01:30 Urine - Urine Clean Catch Legionella Antigen - Final 06/19/18 01:30 Urine - Urine Clean Catch Streptococcus pneumoniae Antigen ( M - Final a/p gram postive bacteremia- ?pneumococcal, awaiting ID RUL infiltrate poorly controlled DM continue vancomycin and rocephin repeat esr/crp in am f/u cultures echo in am Problem List - Problems (1) Bacteremia Code(s): R78.81 - BACTEREMIA (2) Community acquired pneumonia Code(s): J18.9 - PNEUMONIA, UNSPECIFIED ORGANISM Qualifiers: Laterality: right Lung location: upper lobe of lung Qualified Code(s): J18.1 - Lobar pneumonia, unspecified organism (3) Diabetes Code(s): E11.9 - TYPE 2 DIABETES MELLITUS WITHOUT COMPLICATIONS
--- NOTE | 2018-06-20 19:08 | CONSULT ---
Consult Consult Specialty:: endocrine Referred by:: dr.ammir jordan Reason for Consultation:: diabetes mellitus - History of Present Illness Chief Complaint: cough shortness of breath History of Present Illness: 63 year old female with a history of DM and hypertension presented to the ED with a 2 day hx of fever, cough, dizziness. Reports that it started as a cough productive of large amount of yellow sputum that progressed to a high fever which did not break with antipyretics. Patient states that she had felt dizzy over the past 2 days, moreso when she is sitting up than when she is laying down. she has had diabetes mellitus for past several years with diet non compliance,family feels she has not been checking her blood sugars - History Source History Provided By: Patient, Family Member - Past Medical History Cardio/Vascular: Yes: HTN, Hyperlipdemia Pulmonary: No: Asthma ...: No - Past Surgical History Past Surgical History: Yes: None - Alcohol/Substance Use Hx Alcohol Use: No - Smoking History Smoking history: Never smoked Have you smoked in the past 12 months: No - Social History Usual Living Arrangement: With Child ADL: Independent History of Recent Travel: No Home Medications - Allergies Allergies/Adverse Reactions: Allergies Allergy/AdvReac Type Severity Reaction Status Date / Time No Known Allergies Allergy Verified 06/18/18 18:11 - Home Medications Home Medications: Ambulatory Orders Aspirin [ASA -] 81 mg PO DAILY 06/18/18 Lisinopril [Zestril] 20 mg PO DAILY 06/18/18 Metformin HCl [Metformin HCl ER] 1,000 mg PO BID 06/18/18 Review of Systems - Review of Systems Constitutional: reports: Weakness Eyes: reports: No Symptoms HENT: reports: No Symptoms Neck: reports: No Symptoms Cardiovascular: reports: No Symptoms Respiratory: reports: Exercise Intolerance, SOB on Exertion Gastrointestinal: reports: Bloating Breasts: reports: No Symptoms Reported Musculoskeletal: reports: No Symptoms Integumentary: reports: No Symptoms Endocrine: reports: Unexplained Weight Gain Physical Exam Vital Signs: Vital Signs Temperature 98.1 F 06/20/18 14:00 Pulse Rate 87 06/20/18 10:00 Respiratory Rate 18 06/20/18 10:00 Blood Pressure 116/88 06/20/18 10:00 O2 Sat by Pulse Oximetry (%) 98 06/20/18 09:00 Constitutional: Yes: Anxious Eyes: Yes: EOM Intact HENT: Yes: Normocephalic Neck: Yes: Trachea Midline Cardiovascular: Yes: Regular Rate and Rhythm Respiratory: Yes: Rhonchi, SOB, Tachypnea Gastrointestinal: Yes: Normal Bowel Sounds ...Rectal Exam: Yes: Deferred Musculoskeletal: Yes: WNL Extremities: Yes: WNL Edema: No Neurological: Yes: Alert, Oriented Labs: CBC, BMP 06/20/18 06:15 06/20/18 06:15 Problem List - Problems (1) Bacteremia Code(s): R78.81 - BACTEREMIA (2) Diabetes Code(s): E11.9 - TYPE 2 DIABETES MELLITUS WITHOUT COMPLICATIONS (3) HTN (hypertension) Code(s): I10 - ESSENTIAL (PRIMARY) HYPERTENSION (4) Sepsis Code(s): A41.9 - SEPSIS, UNSPECIFIED ORGANISM (5) Tachycardia determined by examination of pulse Code(s): R00.0 - TACHYCARDIA, UNSPECIFIED Assessment/Plan Current Active Problems Bacteremia (Acute) Community acquired pneumonia (Acute) Diabetes (Acute) Fever determined by examination (Acute) HTN (hypertension) (Acute) Low oxygen saturation (Acute) Sepsis (Acute) Tachycardia determined by examination of pulse (Acute) Abnormal Lab Results 06/20/18 06/20/18 06:15 06:15 WBC 10.4 H Random Glucose 207 H Calcium 8.4 L Laboratory Results - last 24 hr 06/19/18 06/19/18 06/20/18 07:30 21:06 05:36 WBC RBC Hgb Hct MCV MCH MCHC RDW Plt Count MPV Sodium Potassium Chloride Carbon Dioxide Anion Gap BUN Creatinine Creat Clearance w eGFR POC Glucometer 282 215 Random Glucose Calcium Hepatitis A IgM Ab Negative Hep Bs Antigen Negative Hep B Core IgM Ab Negative Hepatitis C Antibody <0.1 06/20/18 06/20/18 06/20/18 06:15 06:15 11:40 WBC 10.4 H RBC 4.56 Hgb 12.0 Hct 36.5 MCV 80.0 MCH 26.3 MCHC 32.8 RDW 14.4 Plt Count 161 MPV 10.1 Sodium 136 Potassium 3.8 Chloride 101 Carbon Dioxide 27 Anion Gap 9 BUN 14 Creatinine 0.6 Creat Clearance w eGFR > 60 POC Glucometer 205 Random Glucose 207 H Calcium 8.4 L Hepatitis A IgM Ab Hep Bs Antigen Hep B Core IgM Ab Hepatitis C Antibody 06/20/18 16:48 WBC RBC Hgb Hct MCV MCH MCHC RDW Plt Count MPV Sodium Potassium Chloride Carbon Dioxide Anion Gap BUN Creatinine Creat Clearance w eGFR POC Glucometer 200 Random Glucose Calcium Hepatitis A IgM Ab Hep Bs Antigen Hep B Core IgM Ab Hepatitis C Antibody Laboratory Tests 06/19/18 06/19/18 06/19/18 11:44 16:38 21:06 POC Glucometer 318 245 282 06/20/18 06/20/18 06/20/18 05:36 11:40 16:48 POC Glucometer 215 205 200 Laboratory Tests 06/19/18 07:30 Hemoglobin A1c % 9.9 H plan: bgm qid novolog insulin doses januvia `100mg daily metformin 1000mg bid glimiperide 4mg daily diet weight loss lipid panel
[2018-06-21] MEDS: VANCOMYCIN 1,250 MG in DEXTROSE 5%-WATER - 250 ML IVPB SCH ×2 (00:56→12:58)
[2018-06-21] MEDS: sitaGLIPtin PHOSPHATE 100 MG TABLET (FP) PO SCH (06:04)
[2018-06-21] MEDS: INSULIN SLIDING SCALE (NOVOLOG) 1 VIAL SQ SCH ×4 (06:05→21:48)
[2018-06-21] MEDS: GLIMEPIRIDE 2 MG TABLET (FP) PO SCH (06:05)
[2018-06-21] MEDS ORDERED: INSULIN (LEVEMIR) 100 UNITS/ML UNITS SQ ONE (06:16)
[2018-06-21] MEDS ORDERED: INSULIN (NOVOLOG) ASPART 100 UNITS/ML 10ML VIAL ONE ×2 (06:17→21:20)
[2018-06-21] MEDS ORDERED: PT OWN MED DRAWER 7, Y5N ONE (06:17)
--- NOTE | 2018-06-21 08:57 | PN ---
Progress Note, Physician Chief Complaint: AWAKE ALERT FEELING BETTER - Current Medication List Current Medications: Active Medications Acetaminophen (Tylenol -) 650 mg PO Q4H PRN PRN Reason: FEVER Aspirin (Asa -) 81 mg PO DAILY [facility] Last Admin: 06/20/18 10:17 Dose: 81 mg Enoxaparin Sodium (Lovenox -) 40 mg SQ DAILY [facility] Last Admin: 06/20/18 10:17 Dose: 40 mg Glimepiride (Amaryl -) 2 mg PO DAILY@0700 [facility] Last Admin: 06/21/18 06:05 Dose: 2 mg Ceftriaxone Sodium 2 gm/ (Dextrose) 100 mls @ 200 mls/hr IVPB DAILY [facility]; Protocol Last Admin: 06/20/18 10:17 Dose: 200 mls/hr Vancomycin HCl 1,250 mg/ (Dextrose) 250 mls @ 166.667 mls/hr IVPB Q12H [facility]; Protocol Last Admin: 06/21/18 00:56 Dose: 166.667 mls/hr Insulin Aspart (Novolog Vial Sliding Scale -) 1 vial SQ ACHS [facility]; Protocol Last Admin: 06/21/18 06:05 Dose: 2 units Metformin HCl (Glucophage -) 850 mg PO BID@0700,1630 [facility] Last Admin: 06/21/18 06:04 Dose: 850 mg Sitagliptin Phosphate (Januvia -) 100 mg PO DAILY@0700 [facility] Last Admin: 06/21/18 06:04 Dose: 100 mg - Objective Vital Signs: Vital Signs Temperature 98.8 F 06/21/18 06:42 Pulse Rate 87 06/21/18 06:42 Respiratory Rate 20 06/21/18 06:42 Blood Pressure 112/68 06/21/18 06:42 O2 Sat by Pulse Oximetry (%) 98 06/20/18 21:00 Constitutional: Yes: Mild Distress Eyes: Yes: WNL HENT: Yes: WNL Neck: Yes: WNL Cardiovascular: Yes: WNL Respiratory: Yes: Cough, On Nasal O2, Wheezes Gastrointestinal: Yes: WNL Genitourinary: Yes: WNL Musculoskeletal: Yes: WNL Extremities: Yes: WNL Edema: No Peripheral Pulses WNL: Yes Integumentary: Yes: WNL Wound/Incision: Yes: Clean/Dry Neurological: Yes: WNL ...Motor Strength: WNL Psychiatric: Yes: WNL Labs: CBC, BMP 06/20/18 06:15 06/20/18 06:15 Problem List - Problems (1) Bacteremia Code(s): R78.81 - BACTEREMIA (2) Community acquired pneumonia Code(s): J18.9 - PNEUMONIA, UNSPECIFIED ORGANISM Qualifiers: Laterality: right Lung location: upper lobe of lung Qualified Code(s): J18.1 - Lobar pneumonia, unspecified organism (3) Diabetes Code(s): E11.9 - TYPE 2 DIABETES MELLITUS WITHOUT COMPLICATIONS (4) HTN (hypertension) Code(s): I10 - ESSENTIAL (PRIMARY) HYPERTENSION (5) Low oxygen saturation Code(s): R79.81 - ABNORMAL BLOOD-GAS LEVEL (6) Tachycardia determined by examination of pulse Code(s): R00.0 - TACHYCARDIA, UNSPECIFIED (7) Sepsis Code(s): A41.9 - SEPSIS, UNSPECIFIED ORGANISM Assessment/Plan IV ABX NEBS PULM/ID FOLLOW UP CHECK LABS 02 SUPPORT AWAIT MICROBIOLOGY
[2018-06-21] MEDS ORDERED: DEXTROSE 5%-WATER 100 ML IVPB ONE (10:11)
[2018-06-21] MEDS: ASPIRIN 81 MG CHEWABLE TABLETS PO SCH (10:34)
[2018-06-21] MEDS: ENOXAPARIN NA (PORCINE) 40 MG/0.4 ML DISP.SYRIN SQ SCH (10:34)
[2018-06-21] MEDS: CEFTRIAXONE 2 GM in DEXTROSE 5%-WATER 100 ML IVPB SCH (10:34)
--- NOTE | 2018-06-21 10:40 | PN ---
Progress Note (short form) - Note Progress Note: oob to chair still coughing yellow sputum no hemoptysis Vital Signs Period Temp Pulse Resp BP Sys/Funes Pulse Ox Last 24 Hr 97.8 F-98.8 F 83-87 20-20 112-162/68-95 98 cor-rrr lungs crackles RUL abd soft,nt ext no edema CBC, BMP 06/20/18 06:15 06/20/18 06:15 Microbiology 06/18/18 19:00 Blood - Peripheral Venous Blood Culture - Final Streptococcus Pneumoniae 06/18/18 19:00 Blood - Peripheral Venous Blood Culture - Preliminary Streptococcus Pneumoniae 06/20/18 06:15 Blood - Peripheral Venous Blood Culture - Preliminary NO GROWTH OBTAINED AFTER 24 HOURS, INCUBATION TO CONTINUE FOR 4 DAYS. 06/20/18 06:15 Blood - Peripheral Venous Blood Culture - Preliminary NO GROWTH OBTAINED AFTER 24 HOURS, INCUBATION TO CONTINUE FOR 4 DAYS. 06/18/18 22:30 Sputum - Expectorated Gram Stain - Final 06/18/18 22:30 Sputum - Expectorated Sputum Culture - Preliminary NORMAL RESPIRATORY MAGI 06/19/18 01:30 Urine - Urine Clean Catch Urine Culture - Final 06/19/18 01:30 Urine - Urine Clean Catch Legionella Antigen - Final 06/19/18 01:30 Urine - Urine Clean Catch Streptococcus pneumoniae Antigen ( M - Final Laboratory Tests 06/19/18 06/19/18 06/19/18 07:30 07:30 07:30 ESR 84 H Hemoglobin A1c % 9.9 H C-Reactive Protein 42.0 H 06/21/18 06/21/18 06:30 06:30 ESR 87 H Hemoglobin A1c % C-Reactive Protein 10.6 H a/p pneumococcal pneumonia- awaiting sensitivities, continue vancomycin and rocephin -day #3 antibiotics RUL infiltrate poorly controlled DM f/u cultures echo in am refuses HIV tested Problem List - Problems (1) Bacteremia Code(s): R78.81 - BACTEREMIA (2) Community acquired pneumonia Code(s): J18.9 - PNEUMONIA, UNSPECIFIED ORGANISM Qualifiers: Laterality: right Lung location: upper lobe of lung Qualified Code(s): J18.1 - Lobar pneumonia, unspecified organism (3) Diabetes Code(s): E11.9 - TYPE 2 DIABETES MELLITUS WITHOUT COMPLICATIONS
--- NOTE | 2018-06-21 11:01 | PN ---
Progress Note (short form) - Note Progress Note: PULMONARY States she is feeling much better. No fevers or chills. +cough productive of yellow sputum. Vital Signs Period Temp Pulse Resp BP Sys/Funes Pulse Ox Last 24 Hr 97.8 F-98.8 F 83-87 20-20 112-162/68-95 98 Gen: NAD in chair Heart: RRR Lung: decreased breath sounds at the bases Abd: soft, nontender Ext: no edema CBC, BMP 06/20/18 06:15 06/20/18 06:15 Active Medications Acetaminophen (Tylenol -) 650 mg PO Q4H PRN PRN Reason: FEVER Aspirin (Asa -) 81 mg PO DAILY [facility] Last Admin: 06/21/18 10:34 Dose: 81 mg Enoxaparin Sodium (Lovenox -) 40 mg SQ DAILY [facility] Last Admin: 06/21/18 10:34 Dose: 40 mg Glimepiride (Amaryl -) 2 mg PO DAILY@0700 [facility] Last Admin: 06/21/18 06:05 Dose: 2 mg Ceftriaxone Sodium 2 gm/ (Dextrose) 100 mls @ 200 mls/hr IVPB DAILY [facility]; Protocol Last Admin: 06/21/18 10:34 Dose: 200 mls/hr Vancomycin HCl 1,250 mg/ (Dextrose) 250 mls @ 166.667 mls/hr IVPB Q12H [facility]; Protocol Last Admin: 06/21/18 00:56 Dose: 166.667 mls/hr Insulin Aspart (Novolog Vial Sliding Scale -) 1 vial SQ ACHS [facility]; Protocol Last Admin: 06/21/18 06:05 Dose: 2 units Metformin HCl (Glucophage -) 850 mg PO BID@0700,1630 [facility] Last Admin: 06/21/18 06:04 Dose: 850 mg Sitagliptin Phosphate (Januvia -) 100 mg PO DAILY@0700 [facility] Last Admin: 06/21/18 06:04 Dose: 100 mg A/P Pneumonia Pneumococcal Bacteremia Sepsis HTN DM - continue antibiotics per ID - f/u sensitivities - outpt f/u of chest imaging to ensure resolution - DVT prophylaxis
--- NOTE | 2018-06-21 17:43 | ECHO ---
Name: JENNIFER SALMON Exam:Adult Echocardiogram Study Date: 06/21/2018 12:13 PM Age: 63 yrs Reason For Study: R/O ACS Height: 66 in Weight: 215 lb BSA: 2.1 m2 MMode/2D Measurements & Calculations IVSd: 1.1 cm Ao root diam: 3.6 cm LVIDd: 5.2 cm LA dimension: 3.9 cm LVIDs: 2.9 cm ACS: 1.9 cm LVPWd: 0.91 cm IVSs: 1.4 cm LVPWs: 1.5 cm EDV(Teich): 129.2 ml ESV(Teich): 33.3 ml Doppler Measurements & Calculations MV E max ravinder: 70.1 cm/sec Ao V2 max: 161.8 cm/sec MV A max ravinder: 80.9 cm/sec Ao max P.5 mmHg MV E/A: 0.87 Ao V2 mean: 101.2 cm/sec Ao mean P.8 mmHg Ao V2 VTI: 24.6 cm TR max ravinder: 238.6 cm/sec Med Peak E' Ravinder: 5.2 cm/sec TR max P.8 mmHg Med E/e': 13.6 Lat Peak E' Ravinder: 5.4 cm/sec Lat E/e': 13.0 Procedure A complete two-dimensional transthoracic echocardiogram was performed (2D, M-mode, Doppler and color flow Doppler). Left Ventricle The left ventricle is normal in size. Left ventricular systolic function is normal. Ejection Fraction = 65- 70%. TDI reveals mildly impaired relaxation with elevated filling pressure (E/E' 14). No regional wal l motion abnormalities noted. Right Ventricle The right ventricle is normal size. The right ventricular systolic function is normal. Atria The left atrium is mildly dilated. Right atrial size is normal. Mitral Valve There is mild mitral annular calcification. There is mild mitral regurgitation. Tricuspid Valve The tricuspid valve is normal in structure and function. There is mild tricuspid regurgitation. Pulmo nary artery systolic pressure is at least 32 mmHg assuming RA pressure is estimated 3 mmHg. Aortic Valve There is mild aortic sclerosis.;. No aortic regurgitation is present. Pulmonic Valve The pulmonic valve is not well visualized. Great Vessels The aortic root is normal size. Pericardium/Pleura There is no pericardial effusion. Interpretation Summary The left ventricle is normal in size. Left ventricular systolic function is normal. No regional wall motion abnormalities noted. Ejection Fraction = 65-70%. TDI reveals mildly impaired relaxation with elevated filling pressure (E/E' 14) The right ventricular systolic function is normal. The left atrium is mildly dilated. Right atrial size is normal. There is mild mitral annular calcification. There is mild mitral regurgitation. There is mild tricuspid regurgitation. Pulmonary artery systolic pressure is at least 32 mmHg assuming RA pressure is estimated 3 mmHg There is mild aortic sclerosis. There is no pericardial effusion. Previous study is not available for comparison James Pardo MD 06/21/2018 05:42 PM
--- NOTE | 2018-06-21 18:32 | EKG ---
Test Reason : Blood Pressure : / mmHG Vent. Rate : 092 BPM Atrial Rate : 092 BPM P-R Int : 144 ms QRS Dur : 082 ms QT Int : 346 ms P-R-T Axes : 049 015 047 degrees QTc Int : 427 ms NORMAL SINUS RHYTHM NORMAL ECG WHEN COMPARED WITH ECG OF 18-JUN-2018 18:43, UNCHANGED. PREVIOUS RHYTHM APPEARS TO BE SINUS Confirmed by LEONARD BAUM MD ([id number]) on 06/21/2018 6:32:22 PM Referred By: Confirmed By:LEONARD BAUM MD
--- NOTE | 2018-06-21 18:34 | EKG ---
Test Reason : Blood Pressure : / mmHG Vent. Rate : 108 BPM Atrial Rate : 216 BPM P-R Int : 000 ms QRS Dur : 074 ms QT Int : 388 ms P-R-T Axes : 039 008 050 degrees QTc Int : 519 ms SINUS RHYTHM NONSPECIFIC T WAVE ABNORMALITY ABNORMAL ECG WHEN COMPARED WITH ECG OF 24-JUN-2007 12:06, VENT. RATE HAS INCREASED BY 40 BPM Confirmed by LEONARD BAUM MD ([id number]) on 06/21/2018 6:34:24 PM Referred By: Confirmed By:LEONARD BAUM MD
[2018-06-22] MEDS ORDERED: PT OWN MED DRAWER 7, Y5N ONE ×2 (05:47→17:11)
[2018-06-22] MEDS ORDERED: INSULIN (NOVOLOG) ASPART 100 UNITS/ML 10ML VIAL ONE ×2 (05:49→21:01)
[2018-06-22] MEDS: INSULIN SLIDING SCALE (NOVOLOG) 1 VIAL SQ SCH ×4 (06:06→22:03)
[2018-06-22] MEDS: sitaGLIPtin PHOSPHATE 100 MG TABLET (FP) PO SCH (06:07)
[2018-06-22] MEDS: GLIMEPIRIDE 2 MG TABLET (FP) PO SCH (06:07)
[2018-06-22] MEDS ORDERED: DEXTROSE 5%-WATER 100 ML IVPB ONE (09:44)
[2018-06-22] MEDS: ENOXAPARIN NA (PORCINE) 40 MG/0.4 ML DISP.SYRIN SQ SCH (09:55)
[2018-06-22] MEDS: ASPIRIN 81 MG CHEWABLE TABLETS PO SCH (09:55)
[2018-06-22] MEDS: CEFTRIAXONE 2 GM in DEXTROSE 5%-WATER 100 ML IVPB SCH (09:55)
--- NOTE | 2018-06-22 11:15 | PN ---
Progress Note (short form) - Note Progress Note: PULMONARY Continues to feel better. No fevers or chills. Coughing less. Blood culture sensitivities back with pansensitive strep pneumo. Vital Signs Period Temp Pulse Resp BP Sys/Funes Pulse Ox Last 24 Hr 98.1 F-98.8 F 70-88 18-20 123-148/70-78 99 Gen: NAD at rest Heart: RRR Lung: decreased breath sounds at the bases Abd: soft, nontender Ext: no edema CBC, BMP 06/20/18 06:15 06/20/18 06:15 Active Medications Acetaminophen (Tylenol -) 650 mg PO Q4H PRN PRN Reason: FEVER Last Admin: 06/22/18 03:49 Dose: 650 mg Aspirin (Asa -) 81 mg PO DAILY [facility] Last Admin: 06/22/18 09:55 Dose: 81 mg Enoxaparin Sodium (Lovenox -) 40 mg SQ DAILY [facility] Last Admin: 06/22/18 09:55 Dose: 40 mg Glimepiride (Amaryl -) 2 mg PO DAILY@0700 [facility] Last Admin: 06/22/18 06:07 Dose: 2 mg Ceftriaxone Sodium 2 gm/ (Dextrose) 100 mls @ 200 mls/hr IVPB DAILY [facility]; Protocol Last Admin: 06/22/18 09:55 Dose: 200 mls/hr Insulin Aspart (Novolog Vial Sliding Scale -) 1 vial SQ ACHS [facility]; Protocol Last Admin: 06/22/18 06:06 Dose: 2 units Metformin HCl (Glucophage -) 850 mg PO BID@0700,1630 [facility] Last Admin: 06/22/18 06:06 Dose: 850 mg Sitagliptin Phosphate (Januvia -) 100 mg PO DAILY@0700 [facility] Last Admin: 06/22/18 06:07 Dose: 100 mg A/P Pneumonia Pneumococcal Bacteremia Sepsis HTN DM - complete antibiotics per ID - outpt f/u of chest imaging to ensure resolution - DVT prophylaxis
--- NOTE | 2018-06-22 15:34 | PN ---
Progress Note, Physician Chief Complaint: AWAKE ALERT FEELING BETTER - Current Medication List Current Medications: Active Medications Acetaminophen (Tylenol -) 650 mg PO Q4H PRN PRN Reason: FEVER Last Admin: 06/22/18 03:49 Dose: 650 mg Aspirin (Asa -) 81 mg PO DAILY [facility] Last Admin: 06/22/18 09:55 Dose: 81 mg Enoxaparin Sodium (Lovenox -) 40 mg SQ DAILY [facility] Last Admin: 06/22/18 09:55 Dose: 40 mg Glimepiride (Amaryl -) 2 mg PO DAILY@0700 [facility] Last Admin: 06/22/18 06:07 Dose: 2 mg Ceftriaxone Sodium 2 gm/ (Dextrose) 100 mls @ 200 mls/hr IVPB DAILY [facility]; Protocol Last Admin: 06/22/18 09:55 Dose: 200 mls/hr Insulin Aspart (Novolog Vial Sliding Scale -) 1 vial SQ ACHS [facility]; Protocol Last Admin: 06/22/18 11:49 Dose: Not Given Metformin HCl (Glucophage -) 850 mg PO BID@0700,1630 [facility] Last Admin: 06/22/18 06:06 Dose: 850 mg Sitagliptin Phosphate (Januvia -) 100 mg PO DAILY@0700 [facility] Last Admin: 06/22/18 06:07 Dose: 100 mg - Objective Vital Signs: Vital Signs Temperature 98.3 F 06/22/18 14:16 Pulse Rate 84 06/22/18 14:16 Respiratory Rate 20 06/22/18 07:49 Blood Pressure 135/76 06/22/18 07:49 O2 Sat by Pulse Oximetry (%) 99 06/21/18 20:34 Constitutional: Yes: Mild Distress Eyes: Yes: WNL HENT: Yes: WNL Neck: Yes: WNL Cardiovascular: Yes: WNL Respiratory: Yes: On Nasal O2, Wheezes Gastrointestinal: Yes: WNL Genitourinary: Yes: WNL Musculoskeletal: Yes: WNL Extremities: Yes: WNL Edema: No Peripheral Pulses WNL: Yes Integumentary: Yes: WNL Wound/Incision: Yes: Clean/Dry Neurological: Yes: WNL ...Motor Strength: WNL Psychiatric: Yes: WNL Labs: CBC, BMP 06/20/18 06:15 06/20/18 06:15 Problem List - Problems (1) Bacteremia Code(s): R78.81 - BACTEREMIA (2) Community acquired pneumonia Code(s): J18.9 - PNEUMONIA, UNSPECIFIED ORGANISM Qualifiers: Laterality: right Lung location: upper lobe of lung Qualified Code(s): J18.1 - Lobar pneumonia, unspecified organism (3) Diabetes Code(s): E11.9 - TYPE 2 DIABETES MELLITUS WITHOUT COMPLICATIONS (4) HTN (hypertension) Code(s): I10 - ESSENTIAL (PRIMARY) HYPERTENSION (5) Low oxygen saturation Code(s): R79.81 - ABNORMAL BLOOD-GAS LEVEL (6) Tachycardia determined by examination of pulse Code(s): R00.0 - TACHYCARDIA, UNSPECIFIED (7) Sepsis Code(s): A41.9 - SEPSIS, UNSPECIFIED ORGANISM Assessment/Plan PICC LINE 14 DAYS TOTAL OF IV CEFTRIAXONE ID F/U APPRECIATED NEBS STEROIDS OOB TO CHAIR DVT PROPHYLAXIS
--- NOTE | 2018-06-22 18:29 | PN ---
Progress Note (short form) - Note Progress Note: doing well Vital Signs Period Temp Pulse Resp BP Sys/Funes Pulse Ox Last 24 Hr 98.1 F-98.8 F 77-88 20-20 123-135/71-77 98-99 cor-rrr lungs clear abd soft,nt ext no edema CBC, BMP 06/20/18 06:15 06/20/18 06:15 Microbiology 06/20/18 06:15 Blood - Peripheral Venous Blood Culture - Preliminary NO GROWTH OBTAINED AFTER 48 HOURS, INCUBATION TO CONTINUE FOR 3 DAYS. 06/20/18 06:15 Blood - Peripheral Venous Blood Culture - Preliminary NO GROWTH OBTAINED AFTER 48 HOURS, INCUBATION TO CONTINUE FOR 3 DAYS. 06/18/18 22:30 Sputum - Expectorated Gram Stain - Final 06/18/18 22:30 Sputum - Expectorated Sputum Culture - Final NORMAL RESPIRATORY MAGI 06/18/18 19:00 Blood - Peripheral Venous Blood Culture - Final Streptococcus Pneumoniae 06/18/18 19:00 Blood - Peripheral Venous Blood Culture - Final Streptococcus Pneumoniae 06/19/18 01:30 Urine - Urine Clean Catch Urine Culture - Final 06/19/18 01:30 Urine - Urine Clean Catch Legionella Antigen - Final 06/19/18 01:30 Urine - Urine Clean Catch Streptococcus pneumoniae Antigen ( M - Final Meds Acetaminophen (Tylenol -) 650 mg PO Q4H PRN PRN Reason: FEVER Last Admin: 06/22/18 03:49 Dose: 650 mg Aspirin (Asa -) 81 mg PO DAILY [facility] Last Admin: 06/22/18 09:55 Dose: 81 mg Enoxaparin Sodium (Lovenox -) 40 mg SQ DAILY [facility] Last Admin: 06/22/18 09:55 Dose: 40 mg Glimepiride (Amaryl -) 2 mg PO DAILY@0700 [facility] Last Admin: 06/22/18 06:07 Dose: 2 mg Ceftriaxone Sodium 2 gm/ (Dextrose) 100 mls @ 200 mls/hr IVPB DAILY [facility]; Protocol Last Admin: 06/22/18 09:55 Dose: 200 mls/hr Insulin Aspart (Novolog Vial Sliding Scale -) 1 vial SQ ACHS [facility]; Protocol Last Admin: 06/22/18 17:14 Dose: 2 units Metformin HCl (Glucophage -) 850 mg PO BID@0700,1630 [facility] Last Admin: 06/22/18 17:14 Dose: 850 mg Sitagliptin Phosphate (Januvia -) 100 mg PO DAILY@0700 [facility] Last Admin: 06/22/18 06:07 Dose: 100 mg a/p pneumococcal pneumonia- day #4 rocephin RUL infiltrate- pneumonia poorly controlled DM echo noted refuses HIV testing should complete 14 days total for invasive pneumococcal disease can please picc line and complete antibiotics at home f/u chest imaging as outpt please call back if needed Problem List - Problems (1) Bacteremia Code(s): R78.81 - BACTEREMIA (2) Community acquired pneumonia Code(s): J18.9 - PNEUMONIA, UNSPECIFIED ORGANISM Qualifiers: Laterality: right Lung location: upper lobe of lung Qualified Code(s): J18.1 - Lobar pneumonia, unspecified organism (3) Diabetes Code(s): E11.9 - TYPE 2 DIABETES MELLITUS WITHOUT COMPLICATIONS
[2018-06-22] MEDS ORDERED: PICC LINE 8 ML FLUSH PROTOCOL IVPUSH PRN (21:41)
[2018-06-23] MEDS ORDERED: PT OWN MED DRAWER 7, Y5N ONE (05:59)
[2018-06-23] MEDS: sitaGLIPtin PHOSPHATE 100 MG TABLET (FP) PO SCH (06:51)
[2018-06-23] MEDS: GLIMEPIRIDE 2 MG TABLET (FP) PO SCH (06:51)
[2018-06-23] MEDS: INSULIN SLIDING SCALE (NOVOLOG) 1 VIAL SQ SCH (06:51)
[2018-06-23 07:52] LABS: HEMATOCRIT 34.9 % (32.4-45.2); HEMOGLOBIN 11.3 GM/dL (10.7-15.3); MCH 26.3 pg (25.7-33.7); MCHC 32.5 g/dl (32.0-36.0); MEAN CELL VOLUME 80.9 fl (80-96); MEAN PLT VOLUME 9.6 fl (7.5-11.1); PLATELET COUNT 230 K/MM3 (134-434); RBC 4.31 M/mm3 (3.60-5.2); RDW 14.4 % (11.6-15.6); WHITE BLOOD COUNT 6.2 K/mm3 (4.0-10.0)
[2018-06-23 08:19] LABS: INR 1.03 (0.83-1.09); PROTHROMBIN TIME (PATIENT) 12.1 SEC (9.7-13.0)
[2018-06-23 09:14] LABS: ANION GAP 11 MMOL/L (8-16); BLOOD UREA NITROGEN 12 mg/dL (7-18); CALCIUM 8.5 mg/dL (8.5-10.1); CHLORIDE 101 mmol/L (98-107); CO2 26 mmol/L (21-32); CREATININE 0.6 mg/dL (0.55-1.3); GLUCOSE,RANDOM 170 mg/dL (74-106); POTASSIUM 3.9 mmol/L (3.5-5.1); SODIUM 138 mmol/L (136-145)
--- NOTE | 2018-06-23 10:03 | DS ---
Physical Examination Vital Signs: Vital Signs Temperature 98.2 F 06/23/18 06:43 Pulse Rate 81 06/23/18 06:43 Respiratory Rate 20 06/23/18 06:43 Blood Pressure 124/69 06/23/18 06:43 O2 Sat by Pulse Oximetry (%) 97 06/22/18 21:00 Constitutional: Yes: No Distress Eyes: Yes: WNL HENT: Yes: WNL Neck: Yes: WNL Cardiovascular: Yes: WNL Respiratory: Yes: Cough Labs: CBC, BMP 06/23/18 06:50 06/23/18 06:50 Discharge Summary Reason For Visit: LOW OXYGEN SATURATION,TACHYCARDIA DETERMINED BY Current Active Problems Bacteremia (Acute) Community acquired pneumonia (Acute) Diabetes (Acute) Fever determined by examination (Acute) HTN (hypertension) (Acute) Low oxygen saturation (Acute) Sepsis (Acute) Tachycardia determined by examination of pulse (Acute) Procedures: Principal: LABS/PICC Hospital Course: PICC LINE FOR IV ABX 14 DAYS +PNEUMOCCAL INFECTION RESP PNEUMONIA TREATED IV ABX/NEBS/STEROIDS Condition: Stable - Instructions Diet, Activity, Other Instructions: 14 DAYS OF CEFTRIAXONE FOLLOW UP WITH YOUR DOCTOR IN 2 WEEKS Referrals: Bhavna Collins [Primary Care Provider] - Disposition: [facility]NS/HOME HEALTH CARE - Home Medications Comprehensive Discharge Medication List: Ambulatory Orders Aspirin [ASA -] 81 mg PO DAILY 06/18/18 Lisinopril [Zestril] 20 mg PO DAILY 06/18/18 Metformin HCl [Metformin HCl ER] 1,000 mg PO BID 06/18/18
[2018-06-23] MEDS ORDERED: DEXTROSE 5%-WATER 100 ML IVPB ONE (10:53)
[2018-06-23] MEDS: CEFTRIAXONE 2 GM in DEXTROSE 5%-WATER 100 ML IVPB SCH (10:57)
[2018-06-23] MEDS: ASPIRIN 81 MG CHEWABLE TABLETS PO SCH (10:59)
[2018-06-23] MEDS: ENOXAPARIN NA (PORCINE) 40 MG/0.4 ML DISP.SYRIN SQ SCH (10:59)
[2018-06-23] MEDS ORDERED: INSULIN (NOVOLOG) ASPART 100 UNITS/ML 10ML VIAL ONE (11:10)
[2018-06-23 15:37] VITALS: PULSE 84; TEMP 98.8
[2018-06-23 16:16] VITALS: BP 146/61
== END 2018-06-23 18:04 | disposition home health service (06) | DRG 720 ==
LOC: JER 18:00 → JERBED 20:59 → J6S 06-19 01:38 → J4W 06-23 17:33 → J6S 06-23 18:01
PROVIDERS: ADMIT Internal Medicine; ATTEND Family Medicine
PROC: 02HV33Z Insertion of Infusion Device into Superior Vena Cava, Percutaneous Approach (ICD-10-PCS; principal; 2018-06-23)
PROC: B518ZZA Fluoroscopy of Superior Vena Cava, Guidance (ICD-10-PCS; 2018-06-23)
DX: A40.3 Sepsis due to Streptococcus pneumoniae (principal); I10 Essential (primary) hypertension; E11.9 Type 2 diabetes mellitus without complications; R50.9 Fever, unspecified; K76.0 Fatty (change of) liver, not elsewhere classified; E66.9 Obesity, unspecified; Z68.33 Body mass index [BMI] 33.0-33.9, adult; R42 Dizziness and giddiness; E87.1 Hypo-osmolality and hyponatremia; R79.81 Abnormal blood-gas level; R00.0 Tachycardia, unspecified; R79.89 Other specified abnormal findings of blood chemistry; J18.9 Pneumonia, unspecified organism; G47.33 Obstructive sleep apnea (adult) (pediatric)
CPT/HCPCS: 36415; 36569; 71045-TC-FY; 71046-TC-FY; 71275-TC; 76705-TC; 77001-TC-FY; 80048; 80053; 80061; 80074; 81003; 81015; 82248; 82550; 82803; 82962; 83036; 83605; 83690; 83721; 83735; 84100; 84443; 84484; 85025; 85027; 85610; 85651; 86140; 86480; 87040; 87070; 87086; 87186; 87205; 87804; 87899; 93005; 93010; 93306-TC; 97116-GP; 97161-GP; 99284-25; C1751; G0480; J0131

== ENCOUNTER 2024-06-18 13:35 | Emergency (ER) | payer MEDICARE, OTHER ==
[2024-06-18 13:41] VITALS: RESP 16; BMI 31.6
[2024-06-18] MEDS ORDERED: ACETAMINOPHEN INJECTION 100 ML ONE (14:44)
[2024-06-18] MEDS ORDERED: morphine SULFATE 4 MG/ML VIAL ONE (14:44)
[2024-06-18] MEDS ORDERED: ONDANSETRON 4 MG/2 ML VIAL ONE (14:44)
[2024-06-18] MEDS ORDERED: KETOROLAC TROMETHAMINE 15 MG/ML VIAL ONE (14:44)
[2024-06-18] MEDS ORDERED: FAMOTIDINE 20 MG/50 ML IVPB 20 MG/50 ML MG IVPB ONE (14:45)
[2024-06-18] MEDS: SODIUM CHLORIDE 1,000 ML IV STA (15:00)
[2024-06-18] MEDS: ONDANSETRON 4 MG/2 ML VIAL IVPB ONE (15:00)
[2024-06-18] MEDS: KETOROLAC TROMETHAMINE 15 MG/ML VIAL IVPUSH ONE (15:00)
[2024-06-18] MEDS: morphine CARPU-JECT 4 MG/1 ML DISP.SYRIN IVPUSH ONE (15:00)
[2024-06-18] MEDS: FAMOTIDINE 20 MG/50 ML IVPB 20 MG/50 ML MG IVPB ONE (15:00)
[2024-06-18] MEDS: ACETAMINOPHEN 1000 MG/100 ML BAG IVPB ONE (15:00)
[2024-06-18 15:19] LABS: BASO % 0.8 % (0-2.0); EOS % 1.1 % (0-4.5); HEMATOCRIT 41.4 % (32.4-45.2); HEMOGLOBIN 14.1 GM/dL (10.7-15.3); LYMPH % 28.4 % (8-40); MCH 27.5 pg (25.7-33.7); MCHC 34.2 g/dl (32.0-36.0); MEAN CELL VOLUME 80.6 fl (80-96); MEAN PLT VOLUME 8.5 fl (7.5-11.1); NEUT % 62.7 % (42.8-82.8); PLATELET COUNT 189 10^3/uL (134-434); RBC 5.14 M/mm3 (3.60-5.2); RDW 14.8 % (11.6-15.6); WHITE BLOOD COUNT 5.3 K/mm3 (4.0-10.0)
[2024-06-18 15:25] LABS: INR 0.93 (0.83-1.09); PROTHROMBIN TIME (PATIENT) 10.7 SEC (9.7-13.0)
[2024-06-18 15:28] LABS: ACTIVATED PTT 31.2 SECONDS (25.2-36.5)
[2024-06-18 15:30] LABS: POTASSIUM 4.1 mmol/L (3.5-5.1)
[2024-06-18 15:33] LABS: ALBUMIN 3.8 g/dl (3.4-5.0); CALCIUM 9.3 mg/dL (8.5-10.1)
[2024-06-18 15:34] LABS: BLOOD UREA NITROGEN 12.5 mg/dL (7-18)
[2024-06-18 15:37] LABS: CREATININE 0.9 mg/dL (0.55-1.3)
[2024-06-18 15:38] LABS: BILIRUBIN,TOTAL 0.6 mg/dL (0.2-1); TOT PROT 7.2 g/dl (6.4-8.2)
[2024-06-18 16:27] LABS: HIV INTERPRETATION NEGATIVE (NEGATIVE)
[2024-06-18] MEDS ORDERED: TAMSULOSIN HCL 0.4 MG CAP ONE (18:20)
[2024-06-18] MEDS: TAMSULOSIN HCL 0.4 MG CAP PO ONE (18:24)
[2024-06-18 18:33] VITALS: BP 160/94; PULSE 80; TEMP 98.3
[2024-06-18 18:59] LABS: EPI CELLS 2 /uL (0-25.1); HYALINE CASTS 1 /uL (0-3.1); PH,URINE 5.5 (5.0-8.0); URINE APPEARANCE CLEAR; URINE BACTERIA 17 /uL (0-1359); URINE BILIRUBIN NEGATIVE (NEGATIVE); URINE COLOR YELLOW; URINE GLUCOSE (UA) 3+ (NEGATIVE); URINE KETONE NEGATIVE (NEGATIVE); URINE LEUK ESTERASE NEGATIVE (NEGATIVE); URINE NITRITE NEGATIVE (NEGATIVE); URINE PROTEIN TRACE (NEGATIVE); URINE UROBILINOGEN 0.2 mg/dL (0.2-1.0); URINE WBC 5 /uL (0-25.8)
[2024-06-18 21:58] LABS: URINE RBC 69.8 /uL (0-23.9)
[2024-06-18 21:59] LABS: URINE CRYSTALS MODERATE /hpf
== END 2024-06-18 19:32 | disposition home or self-care (01) ==
LOC: JER 13:35
PROC: 3E033GC Introduction of Other Therapeutic Substance into Peripheral Vein, Percutaneous Approach (ICD-10-PCS; principal; 2024-06-18)
PROC: 3E033NZ Introduction of Analgesics, Hypnotics, Sedatives into Peripheral Vein, Percutaneous Approach (ICD-10-PCS; 2024-06-18)
PROC: 3E0333Z Introduction of Anti-inflammatory into Peripheral Vein, Percutaneous Approach (ICD-10-PCS; 2024-06-18)
PROC: 3E033NZ Introduction of Analgesics, Hypnotics, Sedatives into Peripheral Vein, Percutaneous Approach (ICD-10-PCS; 2024-06-18)
PROC: 3E033GC Introduction of Other Therapeutic Substance into Peripheral Vein, Percutaneous Approach (ICD-10-PCS; 2024-06-18)
DX: R10.11 Right upper quadrant pain (principal); R10.31 Right lower quadrant pain; R11.0 Nausea
CPT/HCPCS: 36415; 74177-TC; 80053; 81003; 85025; 85610; 85730; 86803; 86850; 86900; 86901; 87086; 87389; 93005; 93010; 99285-25; J0131; Q9967

== ENCOUNTER 2024-10-15 11:37 | Observation (INO) | payer MEDICARE, OTHER ==
[2024-10-15 11:42] VITALS: BMI 32.5
[2024-10-15] MEDS ORDERED: ACETAMINOPHEN INJECTION 100 ML ONE (12:25)
[2024-10-15] MEDS: SODIUM CHLORIDE 0.9% 500 ML INFUS.BAG IV ONE (12:55)
[2024-10-15] MEDS: ACETAMINOPHEN 1000 MG/100 ML BAG IVPB ONE (12:56)
[2024-10-15 13:22] LABS: BASO % 0.4 % (0-2.0); EOS % 0.1 % (0-4.5); HEMATOCRIT 41.7 % (32.4-45.2); HEMOGLOBIN 14.4 GM/dL (10.7-15.3); LYMPH % 15.5 % (8-40); MCH 27.3 pg (25.7-33.7); MCHC 34.7 g/dl (32.0-36.0); MEAN CELL VOLUME 78.7 fl (80-96); MEAN PLT VOLUME 8.4 fl (7.5-11.1); PLATELET COUNT 240 10^3/uL (134-434); RDW 15.7 % (11.6-15.6); WHITE BLOOD COUNT 10.1 K/mm3 (4.0-10.0)
[2024-10-15 13:33] LABS: INR 1.05 (0.83-1.09); PROTHROMBIN TIME (PATIENT) 11.4 SEC (9.7-13.0)
[2024-10-15 13:36] LABS: ACTIVATED PTT 29.1 SECONDS (25.2-36.5)
[2024-10-15 13:53] LABS: POTASSIUM 4.2 mmol/L (3.5-5.1)
[2024-10-15 13:58] LABS: CALCIUM 9.2 mg/dL (8.5-10.1)
[2024-10-15 13:59] LABS: ALBUMIN 4.1 g/dl (3.4-5.0)
[2024-10-15 14:02] LABS: CREATININE 0.9 mg/dL (0.55-1.3)
[2024-10-15 14:03] LABS: BILIRUBIN,TOTAL 1.2 mg/dL (0.2-1); BLOOD UREA NITROGEN 15.9 mg/dL (7-18); TOT PROT 7.7 g/dl (6.4-8.2)
[2024-10-15] MEDS ORDERED: PIPERACILLIN/TAZOB 3.375 GM 3.375 GM/50 ML BAG IVPB ONE (14:14)
[2024-10-15 14:19] LABS: ERYTHROCYTE SEDIMENTATION RATE 12 mm/hr (0-30)
[2024-10-15] MEDS ORDERED: VANCOMYCIN 1 GM PREMIX (F) 1 GM/200 ML BAG ONE (14:35)
[2024-10-15] MEDS: PIPERACILLIN/TAZOB 4.5 GM 3.375 GM in DEXTROSE 5%-WATER 100 ML IVPB ONE (14:35)
[2024-10-15] MEDS: VANCOMYCIN 1,000 MG in DEXTROSE 5%-WATER - 250 ML IVPB ONE (14:45)
[2024-10-16] MEDS: PIPERACILLIN/TAZOB 3.375 GM 50 ML IVPB SCH (01:19)
[2024-10-16] MEDS: GLIMEPIRIDE 2 MG TABLET PO SCH (06:24)
[2024-10-16] MEDS: ACETAMINOPHEN 1000 MG/100 ML BAG IVPB PRN (06:25)
[2024-10-16] MEDS: INSULIN ASPART SLIDING SCALE (NOVOLOG) 1 VIAL SQ SCH (06:57)
[2024-10-16] MEDS ORDERED: LIDOCAINE HCL 1%, 10 MG/ML (20ML VIAL) ONE (08:33)
[2024-10-16] MEDS: TAMSULOSIN HCL 0.4 MG CAP PO SCH (10:54)
[2024-10-16] MEDS: LISINOPRIL 20 MG TABLET PO SCH (10:54)
[2024-10-16] MEDS: ASPIRIN 81 MG CHEWABLE TABLETS PO SCH (10:54)
[2024-10-16] MEDS: PIPERACILLIN/TAZOB 3.375 GM 3.375 GM in DEXTROSE 5%-WATER - 50 ML IVPB SCH (15:27)
[2024-10-16] MEDS: VANCOMYCIN 1 GM PREMIX (F) 1 GM/200 ML BAG IVPB SCH (15:53)
[2024-10-17 10:19] LABS: BASO % 0.5 % (0-2.0); EOS % 1.4 % (0-4.5); HEMATOCRIT 37.4 % (32.4-45.2); HEMOGLOBIN 12.7 GM/dL (10.7-15.3); LYMPH % 33.5 % (8-40); MCH 27.1 pg (25.7-33.7); MEAN CELL VOLUME 79.8 fl (80-96); MEAN PLT VOLUME 8.4 fl (7.5-11.1); MONO % 10.8 % (3.8-10.2); NEUT % 53.8 % (42.8-82.8); PLATELET COUNT 207 10^3/uL (134-434); RBC 4.68 M/mm3 (3.60-5.2); RDW 15.2 % (11.6-15.6); WHITE BLOOD COUNT 5.9 K/mm3 (4.0-10.0)
[2024-10-17 10:57] LABS: POTASSIUM 3.9 mmol/L (3.5-5.1)
[2024-10-17] MEDS ORDERED: VANCOMYCIN/WATER FOR INJ (PEG) 1 GM/200 ML BAG IVPB SCH ×2 (10:58→14:30)
[2024-10-17 11:01] LABS: CALCIUM 9.2 mg/dL (8.5-10.1)
[2024-10-17 11:02] LABS: BLOOD UREA NITROGEN 22.5 mg/dL (7-18)
[2024-10-17 11:03] LABS: ALBUMIN 3.3 g/dl (3.4-5.0)
[2024-10-17 11:05] LABS: CREATININE 0.9 mg/dL (0.55-1.3)
[2024-10-17 11:06] LABS: BILIRUBIN,TOTAL 0.7 mg/dL (0.2-1); TOT PROT 6.6 g/dl (6.4-8.2)
[2024-10-17] MEDS: VANCOMYCIN PREMIX 1.5 GM 1,500 MG/300 ML BAG IVPB SCH (15:43)
[2024-10-18 09:13] LABS: BASO % 0.8 % (0-2.0); EOS % 2.1 % (0-4.5); HEMATOCRIT 39.8 % (32.4-45.2); HEMOGLOBIN 13.2 GM/dL (10.7-15.3); LYMPH % 51.8 % (8-40); MCH 26.9 pg (25.7-33.7); MCHC 33.2 g/dl (32.0-36.0); MEAN PLT VOLUME 8.4 fl (7.5-11.1); MONO % 8.9 % (3.8-10.2); NEUT % 36.4 % (42.8-82.8); PLATELET COUNT 238 10^3/uL (134-434); RBC 4.91 M/mm3 (3.60-5.2); RDW 15.2 % (11.6-15.6); WHITE BLOOD COUNT 5.1 K/mm3 (4.0-10.0)
[2024-10-18 09:15] LABS: INR 0.97 (0.83-1.09); PROTHROMBIN TIME (PATIENT) 10.7 SEC (9.7-13.0)
[2024-10-18 09:50] LABS: POTASSIUM 4.2 mmol/L (3.5-5.1)
[2024-10-18 09:58] LABS: CALCIUM 9.1 mg/dL (8.5-10.1)
[2024-10-18 09:59] LABS: ALBUMIN 3.5 g/dl (3.4-5.0); BLOOD UREA NITROGEN 17.7 mg/dL (7-18)
[2024-10-18 10:02] LABS: BILIRUBIN,TOTAL 0.5 mg/dL (0.2-1); CREATININE 0.8 mg/dL (0.55-1.3)
[2024-10-18 10:03] LABS: TOT PROT 7.1 g/dl (6.4-8.2)
[2024-10-18 12:02] LABS: HCV DIAGNOSTIC IN-HOUSE W/RFLX NON-REACTIVE (NONREACTIVE)
[2024-10-19 10:03] VITALS: RESP 19
[2024-10-19 16:06] VITALS: BP 132/78; PULSE 94; TEMP 97.4
[2024-10-19] MEDS: DOXYCYCLINE HYCLATE 100 MG CAPSULE PO SCH (17:30)
== END 2024-10-19 19:21 | disposition home or self-care (01) ==
LOC: JER 11:37 → JERBED 16:06 → UNDOADMOB 16:06 → INTOOBSV 16:06 → J6S 18:42 → JERBED 18:42 → J6S 10-16 15:48 → JERBED 10-16 15:48
PROVIDERS: ADMIT Internal Medicine; ATTEND Internal Medicine
PROC: 0H9FXZZ Drainage of Right Hand Skin, External Approach (ICD-10-PCS; principal; 2024-10-16)
PROC: 3E033NZ Introduction of Analgesics, Hypnotics, Sedatives into Peripheral Vein, Percutaneous Approach (ICD-10-PCS; 2024-10-16)
PROC: 3E03329 Introduction of Other Anti-infective into Peripheral Vein, Percutaneous Approach (ICD-10-PCS; 2024-10-16)
PROC: 3E0337Z Introduction of Electrolytic and Water Balance Substance into Peripheral Vein, Percutaneous Approach (ICD-10-PCS; 2024-10-16)
DX: L03.011 Cellulitis of right finger (principal); E11.9 Type 2 diabetes mellitus without complications; R94.5 Abnormal results of liver function studies; I10 Essential (primary) hypertension; E78.5 Hyperlipidemia, unspecified; Z90.49 Acquired absence of other specified parts of digestive tract
CPT/HCPCS: 26010; 36415; 73130-TC-RT-FY; 73140-TC-RT-FY; 76700-TC; 80053; 82962; 82977; 83036; 83605; 84484; 85025; 85610; 85651; 85730; 86140; 86704; 86708; 86803; 86850; 86900; 86901; 87040; 87340; 87517; 93005; 93010; 96365; 96367; 96368; 96375; 96376; 99285-25; G0378; G0480; J0131

== ENCOUNTER 2025-01-05 20:57 | Inpatient (IN) | payer MEDICARE, OTHER ==
[2025-01-05] MEDS ORDERED: ACETAMINOPHEN INJECTION 100 ML ONE (22:12)
[2025-01-05] MEDS: SODIUM CHLORIDE 0.9% 500 ML INFUS.BAG IV ONE (22:19)
[2025-01-05 22:20] LABS: ABSOLUTE IMMATURE GRANULOCYTES 0.07 x10^3/uL (0.0-0.031); BASOPHILS # 0.05 x10^3/uL (0.01-0.08); EOSINOPHIL % 0.4 % (0.7-5.8); EOSINOPHILS # 0.06 x10^3/uL (0.04-0.36); HEMATOCRIT 40.9 % (34.1-44.9); HEMOGLOBIN 14.1 g/dL (11.2-15.7); MCHC 34.5 g/dl (32.2-35.5); MEAN CELL VOLUME 76.7 fl (79.4-94.8); MEAN PLT VOLUME 12.2 fl (9.4-12.3); MONOCYTE # 1.56 x10^3/uL (0.24-0.86); MONOCYTE % 11.1 % (4.7-12.5); PLATELET COUNT 171 x10^3/uL (182-369); RDW 14.1 % (12.4-16.4)
[2025-01-05] MEDS: ACETAMINOPHEN 1000 MG/100 ML BAG IVPB ONE (22:20)
[2025-01-05 22:27] LABS: VENOUS BASE EXCESS -1.3 mmol/L (-2-2); VENOUS O2 SATURATION 88.3 % (70-80); VENOUS PCO2 31.3 mmHg (38-52); VENOUS PH 7.455 (7.310-7.410)
[2025-01-05 22:38] LABS: POTASSIUM 4.2 mmol/L (3.5-5.1)
[2025-01-05 22:40] LABS: ALBUMIN 3.5 g/dl (3.4-5.0); CALCIUM 9.4 mg/dL (8.5-10.1)
[2025-01-05 22:43] LABS: CREATININE 0.9 mg/dL (0.55-1.3)
[2025-01-05 22:45] LABS: BILIRUBIN,TOTAL 1.2 mg/dL (0.2-1); TOT PROT 7.5 g/dl (6.4-8.2)
[2025-01-05 23:20] LABS: INR 1.17 (0.83-1.09); PROTHROMBIN TIME (PATIENT) 12.8 SEC (9.7-13.0)
[2025-01-05 23:23] LABS: ACTIVATED PTT 27.4 SECONDS (25.2-36.5)
[2025-01-06 00:23] LABS: EPI CELLS >36 /uL (0-25.1); HYALINE CASTS 1 /uL (0-3.1); PH,URINE 5.5 (5.0-8.0); URINE APPEARANCE CLEAR; URINE BACTERIA 2017 /uL (0-1359); URINE BILIRUBIN NEGATIVE (NEGATIVE); URINE COLOR YELLOW; URINE GLUCOSE (UA) 3+ (NEGATIVE); URINE KETONE 1+ (NEGATIVE); URINE LEUK ESTERASE NEGATIVE (NEGATIVE); URINE NITRITE NEGATIVE (NEGATIVE); URINE PROTEIN 1+ (NEGATIVE); URINE RBC 16 /uL (0-23.9); URINE WBC 34 /uL (0-25.8)
[2025-01-06] MEDS ORDERED: CEFTRIAXONE 1 GM/50 ML BAG ONE ×3 (01:47→01:55)
[2025-01-06] MEDS: SODIUM CHLORIDE 0.9% 500 ML INFUS.BAG IV ONE (02:07)
[2025-01-06 02:59] VITALS: BMI 29.0
[2025-01-06] MEDS: SODIUM CHLORIDE 1,000 ML IV SCH (03:38)
[2025-01-06] MEDS: ACETAMINOPHEN 325 MG TABLET (FP) PO PRN (07:00)
[2025-01-06] MEDS: INSULIN ASPART SLIDING SCALE (NOVOLOG) 1 VIAL SQ SCH (07:58)
[2025-01-06 08:08] LABS: EOSINOPHIL % 0.5 % (0.7-5.8); EOSINOPHILS # 0.07 x10^3/uL (0.04-0.36); HEMOGLOBIN 13.4 g/dL (11.2-15.7)
[2025-01-06 08:10] LABS: ABSOLUTE IMMATURE GRANULOCYTES 0.08 x10^3/uL (0.0-0.031); BASOPHILS # 0.05 x10^3/uL (0.01-0.08); HEMATOCRIT 38.8 % (34.1-44.9); MCHC 34.5 g/dl (32.2-35.5); MEAN CELL VOLUME 77.3 fl (79.4-94.8); MONOCYTE # 1.53 x10^3/uL (0.24-0.86); MONOCYTE % 10.5 % (4.7-12.5); PLATELET COUNT 178 x10^3/uL (182-369)
[2025-01-06 08:39] LABS: BLOOD UREA NITROGEN 8.6 mg/dL (7-18)
[2025-01-06 08:42] LABS: CREATININE 0.7 mg/dL (0.55-1.3)
[2025-01-06] MEDS: amLODIPine BESYLATE 10 MG TABLET (FP) PO SCH (11:10)
[2025-01-06] MEDS: ENOXAPARIN NA (PORCINE) 40 MG/0.4 ML DISP.SYRIN SQ SCH (11:10)
[2025-01-06] MEDS: LISINOPRIL 20 MG TABLET PO SCH (11:11)
[2025-01-06] MEDS: ONDANSETRON 4 MG/2 ML VIAL IVPUSH PRN (16:50)
[2025-01-06] MEDS: PIPERACILLIN/TAZOB 3.375 GM 3.375 GM in DEXTROSE 5%-WATER - 50 ML IVPB SCH (21:12)
[2025-01-06] MEDS: ATORVASTATIN CA 80 MG TABLET (FP) PO SCH (21:12)
[2025-01-07] MEDS: EMPAGLIFLOZIN (JARDIANCE) 10 MG TABLET PO SCH (06:30)
[2025-01-07] MEDS ORDERED: ONDANSETRON 4 MG/2 ML VIAL IVPUSH PRN ×4 (08:15→11:41)
[2025-01-07] MEDS ORDERED: PROPOFOL 20 ML ONE ×2 (08:19→08:45)
[2025-01-07] MEDS ORDERED: MIDAZOLAM HCL 2 MG/2 ML SINGLE DOSE VIAL ONE (08:20)
[2025-01-07] MEDS: PIPERACILLIN/TAZOBACTAM 3.375 GM VIAL IVPB ONE (08:24)
[2025-01-07] MEDS ORDERED: PIPERACILLIN/TAZOBACTAM 3.375 GM VIAL IVPB ONE (08:31)
[2025-01-07 08:48] LABS: POTASSIUM 3.6 mmol/L (3.5-5.1)
[2025-01-07 08:53] LABS: ALBUMIN 2.9 g/dl (3.4-5.0); BLOOD UREA NITROGEN 9.6 mg/dL (7-18)
[2025-01-07 08:54] LABS: CALCIUM 9.5 mg/dL (8.5-10.1)
[2025-01-07 08:56] LABS: CREATININE 0.8 mg/dL (0.55-1.3)
[2025-01-07 08:58] LABS: BILIRUBIN,TOTAL 1.2 mg/dL (0.2-1); TOT PROT 6.6 g/dl (6.4-8.2)
[2025-01-07] MEDS ORDERED: ONDANSETRON 4 MG/2 ML VIAL ONE (09:02)
[2025-01-07] MEDS ORDERED: DOCUSATE SODIUM 100 MG CAPSULE (FP) PO PRN (09:22)
[2025-01-07] MEDS ORDERED: CEFTRIAXONE 1 GM in DEXTROSE 5%-WATER - 50 ML IVPB SCH (10:00)
[2025-01-07] MEDS: SODIUM CHLORIDE 1,000 ML IV SCH (10:32)
[2025-01-07] MEDS: amLODIPine BESYLATE 10 MG TABLET (FP) PO SCH (10:37)
[2025-01-07] MEDS: ENOXAPARIN NA (PORCINE) 40 MG/0.4 ML DISP.SYRIN SQ SCH (10:37)
[2025-01-07] MEDS: PSYLLIUM 5.85 GM PACKET PO SCH (10:37)
[2025-01-07] MEDS: LISINOPRIL 20 MG TABLET PO SCH (10:37)
[2025-01-07] MEDS: PIPERACILLIN/TAZOB 3.375 GM 3.375 GM in DEXTROSE 5%-WATER - 50 ML IVPB SCH ×3 (11:18→18:23)
[2025-01-07] MEDS: INSULIN ASPART SLIDING SCALE (NOVOLOG) 1 VIAL SQ SCH (11:53)
[2025-01-07] MEDS: ASPIRIN COATED 81 MG TABLET.EC PO SCH (14:35)
[2025-01-07] MEDS: MECLIZINE HCL 25 MG TABLET (FP) PO PRN (14:37)
[2025-01-07 16:43] LABS: HEMATOCRIT 37.2 % (34.1-44.9); HEMOGLOBIN 12.5 g/dL (11.2-15.7); MCHC 33.6 g/dl (32.2-35.5); MEAN CELL VOLUME 78.5 fl (79.4-94.8); MEAN PLT VOLUME 11.5 fl (9.4-12.3); PLATELET COUNT 222 x10^3/uL (182-369); RDW 14.3 % (12.4-16.4)
[2025-01-07 17:07] LABS: POTASSIUM 3.8 mmol/L (3.5-5.1)
[2025-01-07 17:08] LABS: CALCIUM 9.2 mg/dL (8.5-10.1)
[2025-01-07 17:09] LABS: ALBUMIN 2.7 g/dl (3.4-5.0); BLOOD UREA NITROGEN 9.8 mg/dL (7-18)
[2025-01-07 17:12] LABS: CREATININE 0.8 mg/dL (0.55-1.3)
[2025-01-07 17:14] LABS: BILIRUBIN,TOTAL 0.8 mg/dL (0.2-1); TOT PROT 6.3 g/dl (6.4-8.2)
[2025-01-07] MEDS: LACTATED RINGERS SOLUTION 1,000 ML IV SCH (21:38)
[2025-01-07] MEDS: ATORVASTATIN CA 80 MG TABLET (FP) PO SCH (21:41)
[2025-01-08] MEDS: EMPAGLIFLOZIN (JARDIANCE) 10 MG TABLET PO SCH (06:14)
[2025-01-08 07:27] LABS: BASOPHILS # 0.04 x10^3/uL (0.01-0.08); EOSINOPHILS # 0.21 x10^3/uL (0.04-0.36); MEAN CELL VOLUME 76.9 fl (79.4-94.8); MONOCYTE % 10.4 % (4.7-12.5)
[2025-01-08 07:29] LABS: ABSOLUTE IMMATURE GRANULOCYTES 0.14 x10^3/uL (0.0-0.031); HEMATOCRIT 32.7 % (34.1-44.9); HEMOGLOBIN 11.3 g/dL (11.2-15.7); MCHC 34.6 g/dl (32.2-35.5); MEAN PLT VOLUME 10.9 fl (9.4-12.3); MONOCYTE # 1.09 x10^3/uL (0.24-0.86); PLATELET COUNT 205 x10^3/uL (182-369); RDW 13.9 % (12.4-16.4)
[2025-01-08 07:46] LABS: POTASSIUM 3.8 mmol/L (3.5-5.1)
[2025-01-08 07:49] LABS: CALCIUM 8.9 mg/dL (8.5-10.1)
[2025-01-08 07:50] LABS: ALBUMIN 2.5 g/dl (3.4-5.0); BLOOD UREA NITROGEN 10.5 mg/dL (7-18)
[2025-01-08 07:53] LABS: CREATININE 0.8 mg/dL (0.55-1.3)
[2025-01-08 07:54] LABS: TOT PROT 5.7 g/dl (6.4-8.2)
[2025-01-08] MEDS: morphine SULFATE 4 MG/ML VIAL IVPUSH ONE (11:10)
[2025-01-08] MEDS: VANCOMYCIN HCL IN 5 % DEXTROSE 1,250 MG/250 ML BAG IV SCH (13:36)
[2025-01-09 07:41] LABS: ABSOLUTE IMMATURE GRANULOCYTES 0.11 x10^3/uL (0.0-0.031); BASOPHILS # 0.06 x10^3/uL (0.01-0.08); EOSINOPHIL % 3.5 % (0.7-5.8); EOSINOPHILS # 0.25 x10^3/uL (0.04-0.36); HEMATOCRIT 34.1 % (34.1-44.9); HEMOGLOBIN 11.6 g/dL (11.2-15.7); MEAN CELL VOLUME 77.1 fl (79.4-94.8); MEAN PLT VOLUME 11.2 fl (9.4-12.3); MONOCYTE # 0.81 x10^3/uL (0.24-0.86); MONOCYTE % 11.5 % (4.7-12.5); PLATELET COUNT 227 x10^3/uL (182-369); RDW 13.7 % (12.4-16.4)
[2025-01-09 08:10] LABS: ALBUMIN 2.6 g/dl (3.4-5.0); BLOOD UREA NITROGEN 12.7 mg/dL (7-18)
[2025-01-09 08:11] LABS: BILIRUBIN,TOTAL 0.6 mg/dL (0.2-1)
[2025-01-09 08:13] LABS: CREATININE 0.6 mg/dL (0.55-1.3)
[2025-01-09 08:14] LABS: CALCIUM 9.4 mg/dL (8.5-10.1)
[2025-01-09] MEDS: ACETAMINOPHEN 325 MG TABLET (FP) PO PRN (18:10)
[2025-01-10 14:57] VITALS: RESP 18
[2025-01-10] MEDS: DOXYCYCLINE HYCLATE 100 MG CAPSULE PO SCH (18:55)
[2025-01-11 14:57] VITALS: BP 121/71; PULSE 79; TEMP 98.1
== END 2025-01-11 17:00 | disposition home or self-care (01) | DRG 854 ==
LOC: JER 20:57 → JERBED 01-06 00:37 → J7W 01-06 02:44
PROVIDERS: ADMIT Internal Medicine; ATTEND Internal Medicine
PROC: 0D9P00Z Drainage of Rectum with Drainage Device, Open Approach (ICD-10-PCS; principal; 2025-01-07 08:30)
DX: A41.9 Sepsis, unspecified organism (principal); K61.1 Rectal abscess; L03.90 Cellulitis, unspecified; N39.0 Urinary tract infection, site not specified; K11.8 Other diseases of salivary glands; E11.9 Type 2 diabetes mellitus without complications; I10 Essential (primary) hypertension; E78.5 Hyperlipidemia, unspecified; Z79.4 Long term (current) use of insulin; R22.0 Localized swelling, mass and lump, head; M48.00 Spinal stenosis, site unspecified; M50.30 Other cervical disc degeneration, unspecified cervical region; R42 Dizziness and giddiness
CPT/HCPCS: 0241U-QW; 36415; 70450-TC; 70491-TC; 71045-TC-FY; 72125-TC; 74177-TC; 80048; 80053; 81003; 82803; 82962; 83036; 83605; 84443; 84484; 85025; 85027; 85610; 85730; 86850; 86900; 86901; 87040; 87070; 87077; 87086; 87205; 93005; 93010; 94760; 99285-25; Q9967